=== PATIENT | female | born 1970 | race Caucasian/White ===

== ENCOUNTER → 2016-07-16 | Outpatient (REF) | payer OTHER | LOC: M LAB REF 16:45 | DX: N39.0 Urinary tract infection, site not specified (principal) ==

== ENCOUNTER → 2016-08-01 | Outpatient (REF) | payer OTHER | LOC: M SFHCSACK 10:30 | PROVIDERS: ATTEND Physician Assistant | DX: R87.619 Unspecified abnormal cytological findings in specimens from cervix uteri (principal) ==

== ENCOUNTER → 2016-11-17 | Outpatient (REF) | payer OTHER ==
[~2016-11-17] MED LIST: OXYC1TAB23 PO; SKEL800T97 PO
[2016-11-17 16:22] LABS: BASO % 0.7 % (0.0-1.0); EOS # 0.6 K/mm3 (0.0-0.50); EOS % 7.1 % (0.0-3.0); LARGE UNSTAINED CELL # 0.1 K/mm3 (0.0-0.4); LARGE UNSTAINED CELL % 1.5 % (0.0-4.0); LYMPH # 2.4 K/mm3 (1.5-4.5); LYMPH % 27.7 % (24.0-44.0); MEAN CORPUSCULAR HEMOGLOBIN 22.4 pg (27.0-33.0); MEAN CORPUSCULAR HGB CONC 30.9 g/dl (32.0-36.5); MEAN CORPUSCULAR VOLUME 72.3 fl (80.0-96.0); MONO # 0.5 K/mm3 (0.0-0.8); MONO % 5.6 % (0.0-5.0); NEUTROPHILS # 4.8 K/mm3 (1.8-7.7); NEUTROPHILS % 57.5 % (36.0-66.0); PLATELET COUNT, AUTOMATED 267 k/mm3 (150-450); RED CELL DISTRIBUTION WIDTH 14.6 % (11.5-14.5); WHITE BLOOD COUNT 8.3 K/mm3 (4.0-10.0)
[2016-11-17 16:35] LABS: ALBUMIN 3.7 GM/DL (3.2-5.2); ALBUMIN/GLOBULIN RATIO 1.09 (1.00-1.93); ALKALINE PHOSPHATASE 65 U/L (45-117); ALT/SGPT 27 U/L (12-78); ANION GAP 7 MEQ/L (8-16); AST/SGOT 29 U/L (15-37); BILIRUBIN,TOTAL 0.4 MG/DL (0.2-1.0); BLOOD UREA NITROGEN 19 MG/DL (7-18); CALCIUM LEVEL 9.2 MG/DL (8.5-10.1); CARBON DIOXIDE LEVEL 28 MEQ/L (21-32); CHLORIDE LEVEL 107 MEQ/L (98-107); CHOLESTEROL LEVEL 249 MG/DL (<200); CREATININE FOR GFR 0.84 MG/DL (0.55-1.02); FREE T4 0.83 NG/DL (0.76-1.46); GLOMERULAR FILTRATION RATE > 60.0 (>58); GLUCOSE, FASTING 72 MG/DL (70-105); POTASSIUM SERUM 4.2 MEQ/L (3.5-5.1); SODIUM LEVEL 142 MEQ/L (136-145); TOTAL PROTEIN 7.1 GM/DL (6.4-8.2); TRIGLYCERIDES LEVEL 77 MG/DL (<150); VITAMIN B12 LEVEL 422 PG/ML (247-911)
== END ==
LOC: M SFHCSACK 08:36
PROVIDERS: ATTEND Physician Assistant
DX: Z01.419 Encounter for gynecological examination (general) (routine) without abnormal findings (principal)

== ENCOUNTER → 2016-11-18 | Outpatient (CLI) | payer OTHER ==
--- NOTE | 2016-12-10 01:04 | ECWPNPC ---
PATIENT NAME: CARLOS LIANG : 1970 GENDER: FEMALE VISIT DATE: 11/18/2016 DISCHARGE DATE: 11/18/16 1419 VISIT LOCKED DATE TIME: PHYSICIAN: EFRAIN LOPEZ RESOURCE: EFRAIN LOPEZ REASON FOR APPOINTMENT 1. NECK- HISTORY OF PRESENT ILLNESS NEW PATIENT CONSULT: 46 Y/O FEMALE [facility] ,VALERIE ABARCA PA-C FOR CHRONIC NECK PAIN AND HEADACHES.THIS BEGAN 3 YEARS AGO WITH HEADACHE WITH ASSOCIATED VOMITING.BEGAN FOLLOWING WITH NEUROLOGY HERE LOCALLY WITH DR. HENLEY.BEGAN TO HAVE LEFT ARM RADICULAR SYMPTOMS AFTER A PERIOD OF VOMITING ASSOCIATED WITH [facility].HISTORY OF CERVICAL FUSION IN [place]January 2016 [place].ALSO HAS CHRONIC LOW BACK PAIN.RATING PAIN VAS 3/10.DESCRIBES LEFT NECK AND SHOULDER PAIN INTERMITTENT SHARP AND STABBING PAIN.PAIN IS AGGREVATED BY INCREASED ACTIVITY AND STRESS AND RELIEVED SOMEWHAT WITH MEDICATION.CURRENTLY USING PERCOCET 5/325 PRN FOR SEVERE PAIN.DENIES RECENT FEVER,ILLNESS OR WEIGHT LOSS.DENIES BOWEL OR BLADDER INCONTINENCE. WHEN DID YOUR PAIN FIRST START? . BRIEFLY DESCRIBE HOW YOUR PAIN STARTED? . HOW DOES YOUR PAIN CHANGE WITH TIME? . DOES YOUR PAIN AWAKEN YOU FROM SLEEP? . HOW MANY HOURS OF SLEEP DO YOU NORMALLY GET? . ANY DIAGNOSTIC TESTING? . FACILITY WHERE TESTS WERE DONE? ____. PAIN TREATMENT TREATMENT YES CANCER HAVE YOU EVER HAD ANY TYPE OF CANCER?NO NO. PAIN SCREENING: PATIENT HAS A COMPLAINT OF ACUTE OR CHRONIC PAIN :YES FALL RISK SCREENING: SCREENING :NO FALLS IN THE PAST YEAR BAH INVENTORY: QUESTIONNAIRE ASSESSEDYES SCORE VALUE CALCULATED YES SCORE:14 CURRENT MEDICATIONS TAKING PROBIOTIC CAPSULE 1 TAB ORALLY DAILY TAKING ASPIR-81 81 MG TABLET DELAYED RELEASE 2 TABLET ORALLY ONCE A DAY TAKING MULTIVITAMINS TABLET 1 TABLET ORALLY ONCE A DAY TAKING FLUOXETINE HCL 40 MG CAPSULE 2 CAPSULES ORALLY ONCE A DAY TAKING OXYCODONE-ACETAMINOPHEN 5-325 MG TABLET 1 TABLET NEEDED ORALLY EVERY 6 HRS TAKING LORAZEPAM 1 MG TABLET 1 TABLET BID NEEDED FOR ANXIETY ORALLY 30 DAYS TAKING COQ-10 100 MG CAPSULE 1 CAPSULE WITH A MEAL ORALLY ONCE A DAY NOT-TAKING CO Q 10 100 MG CAPSULE 1 CAPSULE WITH A MEAL ORALLY ONCE A DAY NOT-TAKING ACETAMINOPHEN EXTRA STRENGTH 500 MG TABLET 2 TABLETS NEEDED ORALLY MDD 3 GRAMS EVERY 8 HOURS NEEDED FOR PAIN NOT-TAKING LYRICA 50 MG CAPSULE 1 CAPSULE ORALLY THREE TIMES A DAY MDD 150 MG NOT-TAKING PHYSICAL THERAPY EVALUATE AND TREAT PHYSICAL THERAPY MECHANICAL EVAL & TX M54.2 - CERVICALGIS, S/P SURGERY 3 X/WK X MEDICATION LIST REVIEWED AND RECONCILED WITH THE PATIENT PAST MEDICAL HISTORY HYPERLIPIDEMIA-LOW RISK NUCLEAR STRESS TEST AT AGE 40Y PER PATIENT-[place], [place] BETA-THALASSEMIA MINOR-12/2015 HGB ELECTROPHORESIS C A2 ELEVATED AT 5.2 NICOTINE ADDICTION-3/4 PPD SINCE 19Y-01/01/2016 LOW RISK NST-FIELDS AYMPTOMATIC PYRURIA HX OF CHEST PAIN ARTHRITIS HX OF BACK AND NECK PAIN ALLERGIES PENICILLIN (FOR ALLERGIES USE ONLY): HIVES: ALLERGY SURGICAL HISTORY PREMATURE URETHRA REPAIR 1978 RIGHT SHOULDER REPAIR 1998 BROKEN JAW REPAIR 1998 BREAST IMPLANTS 2009 EYE SURGERY TO REMVE BAGS FROM UNDERNEATH 2010 ECT 2013 BILATERAL BUNIONECTOMY 1994 NECK FUSION SURGERY 01/2016 FAMILY HISTORY FATHER: , CAD, [employer] [place] EARLY 50S, SUICIDE MOTHER: ALIVE, BREAST CANCER, DIAGNOSED WITH DIABETES, HYPERTENSION, CANCER SIBLINGS: ALIVE, JOINT ISSUES, , DIAGNOSED WITH HEART DISEASE DAUGHTER(S): ALIVE, GAVE UP TO ADOPTION 4 BROTHER(S) , 1 SISTER(S) - HEALTHY. 1DAUGHTER(S) - HEALTHY. BROTHER CAD WITH [employer] [place] AT 45Y. SOCIAL HISTORY GENERAL: TOBACCO USE ARE YOU A:CURRENT SMOKER HOW MANY CIGARETTES A DAY DO YOU SMOKE?6-10 PATIENT COUNSELED ON THE DANGERS OF TOBACCO USE AND URGED TO QUIT:11/18/2016 ARE YOU INTERESTED IN QUITTING?NOT READY TO QUIT COUNSELED THE PATIENT ON SMOKING EFFECTS, EDUCATION [id number]/19/2017 RECREATIONAL DRUG USE DRUG USE?NO UATSDIN [id number] JAINISM LANGUAGE LANGUAGES SPOKEN:CITIZEN OF [place] LEARNING BARRIERS / SPECIAL NEEDS BARRIERS TO LEARNING?NO HEARING IMPAIRED?NO VISION IMPAIRED?YES :CORRECTIVE LENSES COGNITIVELY IMPAIRED?NO READINESS TO LEARN?YES LEARNING PREFERENCES?NO LEARNING CAPABILITIES PRESENT?YES EMOTIONAL BARRIERS?NO SPECIAL DEVICES?NO LIBRARY PAGE NEEDED?NO PAIN CLINIC PFS, CLERGY, PUBLIC HEALTH REFERRALS PFS REFERRAL NEEDED?NO CLERGY REFERRAL NEEDED?NO PUBLIC HEALTH REFERRAL NEEDED?NO WAS THE PROVIDER NOTIFIED OF ANY PERTINENT INFO?NO HAS THE PATIENT BEEN EDUCATED REGARDING HIS/HER PLAN OF CARE?YES HAS THE PATIENT BEEN EDUCATED REGARDING PAIN, THE RISK FOR PAIN, THE IMPORTANCE OF EFFECTIVE PAIN MANAGEMENT, AND THE PAIN ASSESSMENT PROCESS?YES PATIENT: ____. ADVANCE DIRECTIVES HEALTH CARE PROXY?NO WOULD YOU LIKE MORE INFORMATION?NO DO YOU HAVE A DNR?NO WOULD YOU LIKE MORE INFORMATION?NO LIVING WILL?NO WOULD YOU LIKE MORE INFORMATION?NO POWER OF LAND PLANNER?NO WOULD YOU LIKE MORE INFORMATION?NO REVIEW OF SYSTEMS REVIEWED BY: PROVIDER: EFRAIN JORDAN . CONSTITUTIONAL: ANY CHANGE IN YOUR MEDICAL CONDITION? NO . CHILLS NO . FEVER NO . INFECTION: DO YOU HAVE NEW INFECTIONS? NO . DO YOU HAVE HISTORY OF MRSA? NO . MUSCULOSKELETAL: ANY NEW PATTERNS OF PAIN OR NUMBNESS? NO . SYTEMIC LUPUS NO . GASTROENTEROLOGY: ANY NEW CHANGE IN BOWEL CONTROL? NO . BARRETTS ESOPHAGUS NO . CIRRHOSIS NO . HEPATITIS NO . LIVER FAILURE NO . ACID REFLUX NO . UNEXPLAINED WEIGHT LOSS NO . GENITOURINARY: ANY NEW CHANGE IN BLADDER CONTROL? NO . IS THERE A CHANCE YOU COULD BE ? NO . HEMATOLOGY/LYMPH: DO YOU TAKE ANY BLOOD THINNERS? (FOR EXAMPLE- COUMADIN, PLAVIX, AGGRENOX, PLATEL, PRADAXA, OR XARELTO) NO . WHEN WAS YOUR LAST DOSE? DATE: TIME: . LOW PLATELET COUNT NO . SICKLE CELL DISEASE NO . VON WILLIEBRANDS NO . FACTOR V LEIDEN NO . THALLASEMIA YES . ANEMIA NO . EASY BRUISING NO . NEUROLOGY: HAVE YOU FALLEN IN THE PAST 6 MONTHS? NO . ANY NEW EXTREMITY NUMBNESS OR WEAKNESS? NO . HEAD INJURY NO . DEMENTIA NO . CEREBRAL PALSY NO . MULTIPLE SCLEROSIS NO . DIZZINESS NO . HEADACHE NO . STROKES NO . VERTIGO NO . CARDIOLOGY: DO YOU HAVE A PACEMAKER OR DEFIBRILLATOR? NO . ANGINA NO . HEART ATTACK NO . HEART SURGERY NO . CONGESTIVE HEART FAILURE/FLUID OVERLOAD NO . CHEST PAIN NO . HIGH BLOOD PRESSURE NO . IRREGULAR HEART BEAT NO . RESPIRATORY: HAVE YOU BEEN SICK IN THE PAST WEEK? NO . FEVER NO . FLU LIKE SYMPTOMS? NO . CPAP NO . BYPAP NO . ASTHMA NO . EMPHYSEMA NO . CHRONIC LUNG DISEASES NO . SHORTNESS OF BREATH ON EXERTION YES . DO YOU USE ANY TYPE OF TOBACCO (SMOKE, SMOKELESS, CHEW)? YES . COUGH NO . SNORING NO . INTEGUMENTARY: DO YOU HAVE ANY RASHES OR OPEN SORES? NO . ALLERGIC/IMMUNO: ARE YOU ALLERGIC TO SHELLFISH OR IV DYE? NO . ANY NEW ALLERGIES? NO . PSYCHIATRIC: DO YOU HAVE THOUGHTS OF HURTING YOURSELF OR SOMEONE ELSE? NO . ARE YOU ABUSED, NEGLECTED, OR IN AN UNSAFE ENVIRONMENT? NO . ENDOCRINOLOGY: ARE YOU DIABETIC? NO . THYROID DISORDER NO . OTHER: DO YOU NEED ANY PRESCRIPTIONS? NO . IF YES, PLEASE LIST: ____ . ANY NEW PROBLEMS WITH YOUR MEDICATIONS? NO . WHEN DID YOU LAST EAT? ____ . WHEN DID YOU LAST DRINK? ____ . WHAT DID YOU LAST DRINK? ____ . NAME OF PERSON DRIVING YOU HOME? ____ . DO YOU HAVE ANY OTHER QUESTIONS OR CONCERNS NO . VITAL SIGNS WT 133.2 LBS, HT 64 IN, BMI 22.86 INDEX, BP 121/83 MM HG, HR 81 /MIN, RR 18 /MIN, TEMP 98.0 F, OXYGEN SAT % 98%, NA INITIALS AW 1317, REVIEWED BY: CS. EXAMINATION GENERAL EXAMINATION: GENERAL APPEARANCE:COMFORTABLE . PSYCHAFFECT NORMAL . NECK:TRACHEA MIDLINE. NO CERVICAL OR SUPRACLAVICULAR LYMPHADENOPATHY NOTED . LUNGS:LUNG GARCIA ARE CLEAR TO AUSCULTATION BILATERALLY. GOOD MOVEMENT OF AIR . HEART:S1, S2 IN A REGULAR RATE AND RHYTHM. NO SIGNIFICANT MURMURS, RUBS OR GALLOPS NOTED . ABDOMEN:SOFT, NON-TENDER, NO ORGANOMEGALY, BOWEL SOUNDS ARE NORMAL . DIAGNOSTIC TESTS REVIEWEDCT CERVICAL 11-30-15-REVIEWED CERVICAL WOVP-8-22-26-REVIEWED . CERVICAL SPINE/NECK: RANGE OF MOTION OF NECK:NORMAL IN ALL DIRECTIONS. REFLEXES:DTRS IN THE ARMS ARE 2+ THROUGHOUT AND EQUAL BILATERALLY. MOTOR STRENGTH:NORMAL. TRAPEZIUS TENDERNESS:PRESENT BILATERALLY. MYOFASCIAL TRIGGER POINTS:NOTED OVER TRAPEZIUS BILATERALLY. ASSESSMENTS CERVICALGIA - M54.2 (PRIMARY) TREATMENT CERVICALGIA REFILL OXYCODONE-ACETAMINOPHEN TABLET, 5-325 MG, 1 TABLET NEEDED, ORALLY, EVERY 6 HRS, 10 DAY(S), 40 TABLET, REFILLS 0 START TIZANIDINE HCL TABLET, 2 MG, 1 TABLET NEEDED, ORALLY, Q8H PRN NECK PAIN, 30 DAY(S), 30, REFILLS 0 NOTES: PT 2XWK X 6 WK-MUSCLE STRENGTHENING.BACK REHAB, ISTOP REGISTRY REVIEWED [id number] DEMNOSTRATES COMPLLIANCE. NARCOTIC AGREEMENT REVIEWED AND SIGNED, RISKS AND BENEFITS OF NARCOTIC/OPIOD MEDICATIONS WERE REVIEWED WITH PATIENT - THIS INCLUDES BUT IS NOT LIMITED TO RISK OF DEPENDANCE/DEVELOPMENT OF ADDICTION, MOOD DISTURBANCE AND DEPRESSION, OSTEOPOROSIS, HORMONAL AND LABIDAL CHANGES, RESPIRATORY DEPRESSION AND . PATIENT IS ADVISED NOT TO DRIVE WHILE ON THESE MEDICATIONS. PREVENTIVE MEDICINE PAIN CLINIC TEACHING: MEDICATIONS TIZANIDINE TEACHING DONE. ADDITIONAL INFORMATION GIVEN. QUESTIONS ANSWERED AND PATIENT VERBALIZES UNDERSTANDING.. PROCEDURE CODES FA211 ESTABILISHED PATIENT [facility] CHARGE DISPOSITION & COMMUNICATION FOLLOW UP 4 WEEKS ELECTRONICALLY SIGNED BY JULIAN THOMPSON ON 12/09/2016 AT 05:23 PM EDT DISCLAIMER : THIS IS A VISIT SUMMARY EXTRACTED FROM THE [employer] CHART. IT IS NOT A COPY OF THE [employer] PROGRESS NOTE. SHELDON
== END ==
LOC: M PAIN 13:00
PROVIDERS: ATTEND Nurse Practitioner Family
DX: M54.2 Cervicalgia (principal); R51 Headache; M54.5 Low back pain; G89.29 Other chronic pain; F32.9 Major depressive disorder, single episode, unspecified; F41.9 Anxiety disorder, unspecified; Z79.82 Long term (current) use of aspirin; Z79.891 Long term (current) use of opiate analgesic; Z79.899 Other long term (current) drug therapy; F17.210 Nicotine dependence, cigarettes, uncomplicated; Z88.0 Allergy status to penicillin

== ENCOUNTER 2017-01-12 11:14 | Emergency (ER) | payer OTHER ==
[~2017-01-12] VITALS: Ht 162.6 cm; Wt 62.7 kg
[2017-01-12] MEDS ORDERED: OXYC1TAB23 PO (11:22)
--- NOTE | 2017-01-12 12:35 | REP ---
Clinical: Status post fusion with pain. Technique: AP, lateral, flexion/extension, open-mouth, bilateral oblique views of the cervical spine. Comparison: 07/25/2015. Findings: The patient is noted to be status post fusion and laminectomy from C4-C7. Alignment is maintained. Chronic stable degenerative changes are noted. No acute fracture / compression injury or subluxation is identified. Prevertebral soft tissues are within normal limits. No subcutaneous emphysema. Impression: No obvious acute abnormality. Postsurgical changes noted. Signed by Krishan Gibson MD 01/12/2017 12:27 P
[2017-01-12] MEDS ORDERED: SKEL800T97 PO (12:44)
[2017-01-12 12:50] VITALS: BP 147/82
== END 2017-01-12 12:52 | disposition home or self-care (01) ==
LOC: M ED 11:14
DX: M54.12 Radiculopathy, cervical region (principal); Z98.1 Arthrodesis status; Z88.0 Allergy status to penicillin

== ENCOUNTER → 2017-01-13 | Outpatient (CLI) | payer OTHER ==
--- NOTE | 2017-01-29 01:02 | ECWPNPC ---
PATIENT NAME: CARLOS LIANG : 1970 GENDER: FEMALE VISIT DATE: 01/13/2017 DISCHARGE DATE: 01/13/17 1034 VISIT LOCKED DATE TIME: PHYSICIAN: EFRAIN LOPEZ RESOURCE: EFRAIN LOPEZ REASON FOR APPOINTMENT 1. NECK HISTORY OF PRESENT ILLNESS HISTORY OF PRESENT ILLNESS: HERE FOR F/U OF CHRONIC NECK AND UPPER BACK PAIN.USING PERCOCET 5/325 Q 12HR PRN FOR PAIN.NO IMPROVEMENT IN PAIN WITH TIZANIDINE 2MG.DISCUSSED MEDICATION AND TREATMENT OPTIONS. STARTED PT AT [facility] A FEW WEEKS AGO.DESCRIBES PAIN INTERMITTENT SHARP AND SHOOTING.HAD TO GO TO ER 5 DAYS AGO.STATES PAIN LEVEL WAS 10/10 VAS.PAIN HAS DIMINISHED PAST 24 HR. PAIN THE PATIENT DESCRIBES THE PAIN... THE PATIENT DESCRIBES THE PAIN... FALL RISK SCREENING: SCREENING :NO FALLS IN THE PAST YEAR CURRENT MEDICATIONS TAKING PROBIOTIC CAPSULE 1 TAB ORALLY DAILY TAKING ASPIR-81 81 MG TABLET DELAYED RELEASE 2 TABLET ORALLY ONCE A DAY TAKING MULTIVITAMINS TABLET 1 TABLET ORALLY ONCE A DAY TAKING COQ-10 100 MG CAPSULE 1 CAPSULE WITH A MEAL ORALLY ONCE A DAY TAKING SIMVASTATIN 20 MG TABLET 1 TABLET IN THE EVENING ORALLY ONCE A DAY TAKING DRISDOL 41123 UNIT CAPSULE 1 CAPSULE ORALLY WEEKLY TAKING FLUOXETINE HCL 40 MG CAPSULE 2 CAPSULES ORALLY ONCE A DAY TAKING OXYCODONE-ACETAMINOPHEN 5-325 MG TABLET 1 TABLET NEEDED ORALLY EVERY 6 HRS TAKING TIZANIDINE HCL 2 MG TABLET 1 TABLET NEEDED ORALLY Q8H PRN NECK PAIN TAKING MELATONIN 10 MG CAPSULE 1 TABLET AT BEDTIME NEEDED WITH FOOD ORALLY ONCE A DAY NEEDED TAKING EXCEDRIN MIGRAINE 250-250-65 MG TABLET 2 TABLETS NEEDED ORALLY EVERY 6 HRS TAKING PHYSICAL THERAPY EVALUATE AND TREAT PHYSICAL THERAPY MECHANICAL EVAL & TX M54.2 - CERVICALGIS, S/P SURGERY 3 X/WK X NOT-TAKING CO Q 10 100 MG CAPSULE 1 CAPSULE WITH A MEAL ORALLY ONCE A DAY NOT-TAKING ACETAMINOPHEN EXTRA STRENGTH 500 MG TABLET 2 TABLETS NEEDED ORALLY MDD 3 GRAMS EVERY 8 HOURS NEEDED FOR PAIN NOT-TAKING LYRICA 50 MG CAPSULE 1 CAPSULE ORALLY THREE TIMES A DAY MDD 150 MG MEDICATION LIST REVIEWED AND RECONCILED WITH THE PATIENT PAST MEDICAL HISTORY HYPERLIPIDEMIA-LOW RISK NUCLEAR STRESS TEST AT AGE 40Y PER PATIENT-[place], [place] BETA-THALASSEMIA MINOR-12/2015 HGB ELECTROPHORESIS C A2 ELEVATED AT 5.2 NICOTINE ADDICTION-3/4 PPD SINCE 19Y-01/01/2016 LOW RISK NST-FIELDS AYMPTOMATIC PYRURIA HX OF CHEST PAIN ARTHRITIS HX OF BACK AND NECK PAIN ALLERGIES PENICILLIN (FOR ALLERGIES USE ONLY): HIVES: ALLERGY SOCIAL HISTORY GENERAL: TOBACCO USE ARE YOU A:CURRENT SMOKER HOW MANY CIGARETTES A DAY DO YOU SMOKE?6-10 ARE YOU INTERESTED IN QUITTING?NOT READY TO QUIT PATIENT COUNSELED ON THE DANGERS OF TOBACCO USE AND URGED TO QUIT:11/18/2016 COUNSELED THE PATIENT ON SMOKING EFFECTS, EDUCATION [id number]/19/2017 LUNG CANCER SCREENING SMOKING STATUS:CURRENT SMOKER IS THE PATIENT BETWEEN THE AGE OF 55 AND 77?NO ALCOHOL SCREENING DID YOU HAVE A DRINK CONTAINING ALCOHOL IN THE PAST YEAR?YES HOW OFTEN DID YOU HAVE SIX OR MORE DRINKS ON ONE OCCASION IN THE PAST YEAR?NEVER (0 POINTS) HOW MANY DRINKS DID YOU HAVE ON A TYPICAL DAY WHEN YOU WERE DRINKING IN THE PAST YEAR?1 OR 2 (0 POINTS) HOW OFTEN DID YOU HAVE A DRINK CONTAINING ALCOHOL IN THE PAST YEAR?MONTHLY OR LESS (1 POINT) POINTS1 INTERPRETATIONNEGATIVE RECREATIONAL DRUG USE DRUG USE?NO CAFFEINE CAFFEINE USE?YES HOW OFTEN AND HOW MUCH? 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 DIET: REGULAR. EXERCISE: 4-5 TIMES WEEKLY - CARDIO, WEIGHT LIFTING. MARITAL STATUS: . OTHERS AT HOME: SPOUSE. DRUZE [id number] ZOROASTRIANISM LANGUAGE LANGUAGES SPOKEN:MALAYSIAN EDUCATION LEVEL OF EDUCATION:GRADUATE LEARNING BARRIERS / SPECIAL NEEDS CHANGE FROM LAST VISIT?NO BARRIERS TO LEARNING?NO HEARING IMPAIRED?NO VISION IMPAIRED?YES :CORRECTIVE LENSES COGNITIVELY IMPAIRED?NO READINESS TO LEARN?YES LEARNING PREFERENCES?NO LEARNING CAPABILITIES PRESENT?YES EMOTIONAL BARRIERS?NO SPECIAL DEVICES?NO CORN LAB TECHNICIAN NEEDED?NO PAIN CLINIC PFS, CLERGY, PUBLIC HEALTH REFERRALS PFS REFERRAL NEEDED?NO CLERGY REFERRAL NEEDED?NO PUBLIC HEALTH REFERRAL NEEDED?NO WAS THE PROVIDER NOTIFIED OF ANY PERTINENT INFO?NO HAS THE PATIENT BEEN EDUCATED REGARDING HIS/HER PLAN OF CARE?YES HAS THE PATIENT BEEN EDUCATED REGARDING PAIN, THE RISK FOR PAIN, THE IMPORTANCE OF EFFECTIVE PAIN MANAGEMENT, AND THE PAIN ASSESSMENT PROCESS?YES PATIENT: ____. ADVANCE DIRECTIVES HEALTH CARE PROXY?NO WOULD YOU LIKE MORE INFORMATION?NO POWER OF INSTALLER METAL FLOORING?NO DO YOU HAVE A DNR?NO WOULD YOU LIKE MORE INFORMATION?NO LIVING WILL?NO WOULD YOU LIKE MORE INFORMATION?NO WOULD YOU LIKE MORE INFORMATION?NO NO DOMESTIC VIOLENCE . REVIEW OF SYSTEMS REVIEWED BY: PROVIDER: EFRAIN JORDAN . CONSTITUTIONAL: ANY CHANGE IN YOUR MEDICAL CONDITION? NO . CHILLS NO . FEVER NO . INFECTION: DO YOU HAVE NEW INFECTIONS? NO . DO YOU HAVE HISTORY OF MRSA? NO . MUSCULOSKELETAL: ANY NEW PATTERNS OF PAIN OR NUMBNESS? NO . GASTROENTEROLOGY: ANY NEW CHANGE IN BOWEL CONTROL? NO . GENITOURINARY: ANY NEW CHANGE IN BLADDER CONTROL? NO . IS THERE A CHANCE YOU COULD BE ? NO . HEMATOLOGY/LYMPH: DO YOU TAKE ANY BLOOD THINNERS? (FOR EXAMPLE- COUMADIN, PLAVIX, AGGRENOX, PLATEL, PRADAXA, OR XARELTO) NO . WHEN WAS YOUR LAST DOSE? DATE: TIME: . NEUROLOGY: HAVE YOU FALLEN IN THE PAST 6 MONTHS? NO . ANY NEW EXTREMITY NUMBNESS OR WEAKNESS? NO . CARDIOLOGY: DO YOU HAVE A PACEMAKER OR DEFIBRILLATOR? NO . RESPIRATORY: HAVE YOU BEEN SICK IN THE PAST WEEK? NO . FEVER NO . FLU LIKE SYMPTOMS? NO . COUGH NO . INTEGUMENTARY: DO YOU HAVE ANY RASHES OR OPEN SORES? NO . ALLERGIC/IMMUNO: ARE YOU ALLERGIC TO SHELLFISH OR IV DYE? NO . ANY NEW ALLERGIES? NO . PSYCHIATRIC: DO YOU HAVE THOUGHTS OF HURTING YOURSELF OR SOMEONE ELSE? NO . ARE YOU ABUSED, NEGLECTED, OR IN AN UNSAFE ENVIRONMENT? NO . ENDOCRINOLOGY: ARE YOU DIABETIC? NO . OTHER: DO YOU NEED ANY PRESCRIPTIONS? YES . IF YES, PLEASE LIST: PERCOCET . ANY NEW PROBLEMS WITH YOUR MEDICATIONS? NO . WHEN DID YOU LAST EAT? ____ . WHEN DID YOU LAST DRINK? ____ . WHAT DID YOU LAST DRINK? ____ . NAME OF PERSON DRIVING YOU HOME? ____ . DO YOU HAVE ANY OTHER QUESTIONS OR CONCERNS YES, EMERGENCY ROOM VISIT 01/12/17 BECAUSE OF A HEADACHE FOR 5 DAYS . VITAL SIGNS WT 130 LBS, HT 64 IN, BMI 22.31 INDEX, BP 132/80 MM HG, HR 83 /MIN, RR 18 /MIN, TEMP 98.0 F, OXYGEN SAT % 96%, SAFE IN ENV? (Y/N) YES, NA INITIALS IN 09:22, REVIEWED BY: VIRGILIO. EXAMINATION GENERAL EXAMINATION: GENERAL APPEARANCE:COMFORTABLE . PSYCHAFFECT NORMAL . NECK:TRACHEA MIDLINE. NO CERVICAL OR SUPRACLAVICULAR LYMPHADENOPATHY NOTED . LUNGS:LUNG GARCIA ARE CLEAR TO AUSCULTATION BILATERALLY. GOOD MOVEMENT OF AIR . HEART:S1, S2 IN A REGULAR RATE AND RHYTHM. NO SIGNIFICANT MURMURS, RUBS OR GALLOPS NOTED . ABDOMEN:SOFT, NON-TENDER, NO ORGANOMEGALY, BOWEL SOUNDS ARE NORMAL . DIAGNOSTIC TESTS REVIEWEDCT CERVICAL 11-30-15-REVIEWED CERVICAL VRSH-0-80-26-REVIEWED . CERVICAL SPINE/NECK: RANGE OF MOTION OF NECK:NORMAL IN ALL DIRECTIONS. REFLEXES:DTRS IN THE ARMS ARE 2+ THROUGHOUT AND EQUAL BILATERALLY. MOTOR STRENGTH:NORMAL. TRAPEZIUS TENDERNESS:PRESENT BILATERALLY. MYOFASCIAL TRIGGER POINTS:NOTED OVER TRAPEZIUS BILATERALLY. ASSESSMENTS CERVICALGIA - M54.2 (PRIMARY) MYOFASCIAL PAIN - M79.1 TREATMENT CERVICALGIA REFILL OXYCODONE-ACETAMINOPHEN TABLET, 5-325 MG, 1 TABLET NEEDED, ORALLY, EVERY 6 HRS, 10 DAY(S), 40 TABLET, REFILLS 0 STOP TIZANIDINE HCL TABLET, 2 MG, 1 TABLET NEEDED, ORALLY, Q8H PRN NECK PAIN START COLACE CAPSULE, 100 MG, 1 CAPSULE NEEDED, ORALLY, BID, 30 DAY(S), 60 CAPSULE, REFILLS 2 NOTES: ISTOP REGISTRY REVIEWED [id number] DEMNOSTRATES COMPLLIANCE. BRINGS IN MEDICATIONS WHICH IS APPROPRIATE FOR WHAT WAS DISPENSED. PREVENTIVE MEDICINE PAIN CLINIC TEACHING: MEDICATIONS COLACE TEACHING DONE. PATIENT VERBALIZES UNDERSTANDING.. PROCEDURE CODES FA211 ESTABILISHED PATIENT [facility] CHARGE DISPOSITION & COMMUNICATION FOLLOW UP 4 WEEKS ELECTRONICALLY SIGNED BY JULIAN THOMPSON ON 01/26/2017 AT 08:17 PM EST DISCLAIMER : THIS IS A VISIT SUMMARY EXTRACTED FROM THE [email or web address] CHART. IT IS NOT A COPY OF THE [email or web address] PROGRESS NOTE. SHELDON
== END | disposition home or self-care (01) ==
LOC: M PAIN 09:00
PROVIDERS: ATTEND Nurse Practitioner Family
DX: G89.29 Other chronic pain (principal); M54.2 Cervicalgia; M79.1 Myalgia; E78.5 Hyperlipidemia, unspecified; D56.1 Beta thalassemia; M19.90 Unspecified osteoarthritis, unspecified site; Z79.899 Other long term (current) drug therapy; Z79.82 Long term (current) use of aspirin; Z88.0 Allergy status to penicillin; F17.210 Nicotine dependence, cigarettes, uncomplicated

== ENCOUNTER → 2017-03-03 | Outpatient (CLI) | payer OTHER ==
[~2017-03-03] MED LIST changes: +BUPIVACAINE HCL 0.25% 10 ML VIAL As Ordered; +BUPIVACAINE HCL 0.25% 30 ML VIAL As Ordered; -OXYC1TAB23 PO; -SKEL800T97 PO; +TRIAMCINOLONE ACETONIDE SUSP 40 MG/ML VIAL (J3301) As Ordered; +diazePAM 5 MG TAB As Ordered; +oxyCODONE 5MG TAB As Ordered
== END ==
LOC: M PAIN 11:30
DX: G89.29 Other chronic pain (principal); M54.2 Cervicalgia; M54.6 Pain in thoracic spine; M79.1 Myalgia; E78.5 Hyperlipidemia, unspecified; D56.1 Beta thalassemia; F17.210 Nicotine dependence, cigarettes, uncomplicated; M19.90 Unspecified osteoarthritis, unspecified site; Z88.0 Allergy status to penicillin; Z79.82 Long term (current) use of aspirin; Z79.899 Other long term (current) drug therapy
CPT/HCPCS: J3301

== ENCOUNTER → 2017-03-04 | Outpatient (REF) | payer OTHER ==
[2017-03-04 16:01] LABS: BASO # 0.1 10^3/uL (0.0-0.2); BASO % 0.8 % (0.0-1.0); EOS # 0.3 10^3/uL (0.0-0.50); EOS % 2.6 % (0.0-3.0); HEMATOCRIT 37.8 % (36.0-47.0); IMMATURE GRANULOCYTE % 0.3 % (0-0); LYMPH # 2.6 10^3/uL (1.5-4.5); MEAN CORPUSCULAR HEMOGLOBIN 21.3 pg (27.0-33.0); MEAN CORPUSCULAR HGB CONC 31.7 g/dl (32.0-36.5); MEAN CORPUSCULAR VOLUME 67.1 fl (80.0-96.0); MONO # 0.6 10^3/uL (0.0-0.8); MONO % 5.7 % (0.0-5.0); NEUTROPHILS # 7.1 10^3/uL (1.8-7.7); NEUTROPHILS % 66.6 % (36.0-66.0); PLATELET COUNT, AUTOMATED 353 10^3/uL (150-450); RED BLOOD COUNT 5.63 10^6/uL (4.00-5.40); RED CELL DISTRIBUTION WIDTH 15.6 % (11.5-14.5); WHITE BLOOD COUNT 10.7 10^3/uL (4.0-10.0)
[2017-03-04 16:12] LABS: ALBUMIN 3.7 GM/DL (3.2-5.2); ALBUMIN/GLOBULIN RATIO 1.16 (1.00-1.93); ALKALINE PHOSPHATASE 65 U/L (45-117); ALT/SGPT 40 U/L (12-78); ANION GAP 7 MEQ/L (8-16); AST/SGOT 32 U/L (7-37); BILIRUBIN,TOTAL 0.6 MG/DL (0.2-1.0); BLOOD UREA NITROGEN 13 MG/DL (7-18); CALCIUM LEVEL 8.6 MG/DL (8.5-10.1); CARBON DIOXIDE LEVEL 27 MEQ/L (21-32); CHLORIDE LEVEL 105 MEQ/L (98-107); CHOLESTEROL LEVEL 194 MG/DL (<200); CREATININE FOR GFR 0.87 MG/DL (0.55-1.02); GLOMERULAR FILTRATION RATE > 60.0 (>58); GLUCOSE, FASTING 129 MG/DL (70-105); HDL CHOLESTEROL 101 MG/DL (>40); NON-HDL-C 93 MG/DL; POTASSIUM SERUM 4.1 MEQ/L (3.5-5.1); SODIUM LEVEL 139 MEQ/L (136-145); TOTAL PROTEIN 6.9 GM/DL (6.4-8.2); TRIGLYCERIDES LEVEL 80 MG/DL (<150)
[2017-03-04 21:38] LABS: TOTAL 25(OH) VITAMIN D 41.4 NG/ML (30.0-100.0)
== END ==
LOC: M SFHCSACK 09:26
DX: F41.1 Generalized anxiety disorder (principal); E78.2 Mixed hyperlipidemia; E55.9 Vitamin D deficiency, unspecified

== ENCOUNTER → 2017-03-18 | Outpatient (CLI) | payer OTHER | LOC: M PAIN 15:15 | DX: M54.81 Occipital neuralgia (principal); M54.2 Cervicalgia; E78.5 Hyperlipidemia, unspecified; D56.1 Beta thalassemia; M19.90 Unspecified osteoarthritis, unspecified site; F17.210 Nicotine dependence, cigarettes, uncomplicated; Z88.0 Allergy status to penicillin; Z79.82 Long term (current) use of aspirin; Z79.899 Other long term (current) drug therapy | CPT/HCPCS: G0463 ==

== ENCOUNTER → 2017-04-15 | Outpatient (CLI) | payer OTHER | LOC: M PAIN 08:30 | DX: G89.29 Other chronic pain (principal); M54.81 Occipital neuralgia; E78.5 Hyperlipidemia, unspecified; D56.1 Beta thalassemia; F17.210 Nicotine dependence, cigarettes, uncomplicated; M19.90 Unspecified osteoarthritis, unspecified site; Z79.82 Long term (current) use of aspirin; Z79.899 Other long term (current) drug therapy; Z88.0 Allergy status to penicillin | CPT/HCPCS: J3301 ==

== ENCOUNTER → 2017-05-06 | Outpatient (CLI) | payer OTHER | LOC: M PAIN 09:45 | DX: M54.81 Occipital neuralgia (principal); M54.2 Cervicalgia; E78.5 Hyperlipidemia, unspecified; D56.3 Thalassemia minor; F17.210 Nicotine dependence, cigarettes, uncomplicated; Z79.82 Long term (current) use of aspirin; Z79.891 Long term (current) use of opiate analgesic; Z79.899 Other long term (current) drug therapy; Z88.0 Allergy status to penicillin | CPT/HCPCS: G0463 ==

== ENCOUNTER → 2017-05-12 | Outpatient (REF) | payer OTHER ==
[2017-05-14 14:18] LABS: HPV HYBRID CAPTURE II Negative (Negative)
== END ==
LOC: M SFHCWAGY 09:32
DX: Z12.4 Encounter for screening for malignant neoplasm of cervix (principal)
CPT/HCPCS: G0123

== ENCOUNTER → 2017-05-12 | Outpatient (CLI) | payer OTHER | LOC: M WHC 09:05 | DX: Z12.31 Encounter for screening mammogram for malignant neoplasm of breast (principal); Z80.3 Family history of malignant neoplasm of breast | CPT/HCPCS: 77067 ==

== ENCOUNTER → 2017-05-14 | Outpatient (CLI) | payer OTHER | LOC: M PAIN 14:45 | DX: M54.81 Occipital neuralgia (principal); M54.2 Cervicalgia; E78.5 Hyperlipidemia, unspecified; F32.9 Major depressive disorder, single episode, unspecified; F41.9 Anxiety disorder, unspecified; F17.210 Nicotine dependence, cigarettes, uncomplicated; Z79.82 Long term (current) use of aspirin; Z79.891 Long term (current) use of opiate analgesic; Z79.899 Other long term (current) drug therapy; Z88.0 Allergy status to penicillin | CPT/HCPCS: G0463 ==

== ENCOUNTER → 2017-05-28 | Outpatient (CLI) | payer OTHER | LOC: M PAIN 08:45 | DX: G89.29 Other chronic pain (principal); M54.81 Occipital neuralgia; E78.5 Hyperlipidemia, unspecified; D56.1 Beta thalassemia; F17.200 Nicotine dependence, unspecified, uncomplicated; M19.90 Unspecified osteoarthritis, unspecified site; F41.9 Anxiety disorder, unspecified; F32.9 Major depressive disorder, single episode, unspecified; Z79.82 Long term (current) use of aspirin; Z79.899 Other long term (current) drug therapy; Z88.0 Allergy status to penicillin | CPT/HCPCS: J3301 ==

== ENCOUNTER → 2017-06-11 | Outpatient (CLI) | payer OTHER | LOC: M PAIN 08:45 | DX: G89.29 Other chronic pain (principal); M54.81 Occipital neuralgia; M96.1 Postlaminectomy syndrome, not elsewhere classified; E78.5 Hyperlipidemia, unspecified; K59.03 Drug induced constipation; D56.3 Thalassemia minor; F17.210 Nicotine dependence, cigarettes, uncomplicated; F41.9 Anxiety disorder, unspecified; F32.9 Major depressive disorder, single episode, unspecified; Z79.891 Long term (current) use of opiate analgesic; Z79.82 Long term (current) use of aspirin; T40.2X5A Adverse effect of other opioids, initial encounter; Z98.1 Arthrodesis status; Z88.0 Allergy status to penicillin; Z79.899 Other long term (current) drug therapy | CPT/HCPCS: G0463 ==

== ENCOUNTER → 2017-07-09 | Outpatient (CLI) | payer OTHER | LOC: M PAIN 09:45 | DX: M54.81 Occipital neuralgia (principal); M96.1 Postlaminectomy syndrome, not elsewhere classified; M54.2 Cervicalgia; G89.29 Other chronic pain; E78.5 Hyperlipidemia, unspecified; F17.210 Nicotine dependence, cigarettes, uncomplicated; M19.90 Unspecified osteoarthritis, unspecified site; F41.9 Anxiety disorder, unspecified; F32.9 Major depressive disorder, single episode, unspecified; Z79.891 Long term (current) use of opiate analgesic; Z79.82 Long term (current) use of aspirin; Z79.899 Other long term (current) drug therapy; Z88.0 Allergy status to penicillin | CPT/HCPCS: G0463 ==

== ENCOUNTER → 2017-08-06 | Outpatient (CLI) | payer OTHER | LOC: M PAIN 10:30 | DX: G89.29 Other chronic pain (principal); M54.81 Occipital neuralgia; M96.1 Postlaminectomy syndrome, not elsewhere classified; E78.5 Hyperlipidemia, unspecified; F41.9 Anxiety disorder, unspecified; F32.9 Major depressive disorder, single episode, unspecified; F17.210 Nicotine dependence, cigarettes, uncomplicated; D56.3 Thalassemia minor; Z98.1 Arthrodesis status; Z79.891 Long term (current) use of opiate analgesic; Z79.82 Long term (current) use of aspirin; Z79.899 Other long term (current) drug therapy; Z88.0 Allergy status to penicillin | CPT/HCPCS: G0463 ==

== ENCOUNTER → 2017-10-28 | Outpatient (CLI) | payer OTHER ==
[~2017-10-28] MED LIST changes: -BUPIVACAINE HCL 0.25% 10 ML VIAL As Ordered; +ISOVUE-M 300 61% 15ML VIAL (Q9967) As Ordered; +LIDOCAINE 1% SDV INJ 30 ML VIAL As Ordered; +MIDAZOLAM INJ 2 MG/2 ML VIAL (J2250) As Ordered; -diazePAM 5 MG TAB As Ordered; +fentaNYL 100 MCG/2 ML INJECTION (J3010) As Ordered; -oxyCODONE 5MG TAB As Ordered
== END ==
LOC: M PAIN 10:15
DX: G89.29 Other chronic pain (principal); M47.812 Spondylosis without myelopathy or radiculopathy, cervical region; M47.813 Spondylosis without myelopathy or radiculopathy, cervicothoracic region; E78.2 Mixed hyperlipidemia; D56.1 Beta thalassemia; F41.9 Anxiety disorder, unspecified; F32.9 Major depressive disorder, single episode, unspecified; F17.200 Nicotine dependence, unspecified, uncomplicated; Z79.82 Long term (current) use of aspirin; Z79.899 Other long term (current) drug therapy; Z88.0 Allergy status to penicillin
CPT/HCPCS: J3301

== ENCOUNTER → 2017-11-14 | Outpatient (CLI) | payer OTHER | LOC: M RAD 09:01 | DX: M51.36 Other intervertebral disc degeneration, lumbar region (principal); M51.26 Other intervertebral disc displacement, lumbar region | CPT/HCPCS: 72148 ==

== ENCOUNTER → 2017-11-18 | Outpatient (CLI) | payer OTHER | LOC: M PAIN 11:15 | DX: M79.1 Myalgia (principal); M47.892 Other spondylosis, cervical region; M96.1 Postlaminectomy syndrome, not elsewhere classified; E78.5 Hyperlipidemia, unspecified; F32.9 Major depressive disorder, single episode, unspecified; F41.9 Anxiety disorder, unspecified; F17.210 Nicotine dependence, cigarettes, uncomplicated; Z79.82 Long term (current) use of aspirin; Z79.891 Long term (current) use of opiate analgesic; Z79.899 Other long term (current) drug therapy; Z88.0 Allergy status to penicillin | CPT/HCPCS: G0463 ==

== ENCOUNTER → 2017-12-08 | Outpatient (CLI) | payer OTHER ==
[~2017-12-08] MED LIST changes: +BUPIVACAINE HCL 0.25% 10 ML VIAL As Ordered; -ISOVUE-M 300 61% 15ML VIAL (Q9967) As Ordered; -LIDOCAINE 1% SDV INJ 30 ML VIAL As Ordered; -MIDAZOLAM INJ 2 MG/2 ML VIAL (J2250) As Ordered; +diazePAM 5 MG TAB As Ordered; -fentaNYL 100 MCG/2 ML INJECTION (J3010) As Ordered; +oxyCODONE 5MG TAB As Ordered
== END ==
LOC: M PAIN 12:30
DX: G89.29 Other chronic pain (principal); M79.10 Myalgia, unspecified site; M54.5 Low back pain; E78.5 Hyperlipidemia, unspecified; D56.1 Beta thalassemia; M19.90 Unspecified osteoarthritis, unspecified site; F41.9 Anxiety disorder, unspecified; F32.9 Major depressive disorder, single episode, unspecified; Z79.82 Long term (current) use of aspirin; Z79.899 Other long term (current) drug therapy; Z88.0 Allergy status to penicillin
CPT/HCPCS: J3301

== ENCOUNTER → 2017-12-24 | Outpatient (CLI) | payer OTHER | LOC: M PAIN 09:00 | DX: M79.18 Myalgia, other site (principal); M47.892 Other spondylosis, cervical region; M96.1 Postlaminectomy syndrome, not elsewhere classified; E78.5 Hyperlipidemia, unspecified; D56.1 Beta thalassemia; M19.90 Unspecified osteoarthritis, unspecified site; F31.31 Bipolar disorder, current episode depressed, mild; F41.9 Anxiety disorder, unspecified; Z79.82 Long term (current) use of aspirin; Z79.899 Other long term (current) drug therapy; Z88.0 Allergy status to penicillin | CPT/HCPCS: G0463 ==

== ENCOUNTER 2017-12-31 12:50 | Emergency (ER) | payer OTHER ==
[2017-12-31] MEDS: hydrOXYzine 50 MG TAB PO (14:59)
== END 2017-12-31 15:23 | disposition home or self-care (01) ==
LOC: M ED 12:50
DX: F11.23 Opioid dependence with withdrawal (principal); F41.9 Anxiety disorder, unspecified; F33.9 Major depressive disorder, recurrent, unspecified; E78.00 Pure hypercholesterolemia, unspecified; D56.3 Thalassemia minor; Z79.899 Other long term (current) drug therapy; Z79.82 Long term (current) use of aspirin; Z88.0 Allergy status to penicillin
CPT/HCPCS: 99283

== ENCOUNTER → 2018-03-01 | Outpatient (REF) | payer OTHER ==
[~2018-03-01] MED LIST changes: +ASPI81TA85 PO; -BUPIVACAINE HCL 0.25% 10 ML VIAL As Ordered; -BUPIVACAINE HCL 0.25% 30 ML VIAL As Ordered; +CO Q100C10 PO; +COLA100C5 PO; +FLUO40CA PO; +HYDR50CA2 PO; +LORA-243 PO; +MOVA1TAB2 PO; +MULT1TAB18 PO; +OXYC10TA3 PO; +OXYC1TAB23 PO; +SIMV20TA2 PO; +SKEL800T97 PO; -TRIAMCINOLONE ACETONIDE SUSP 40 MG/ML VIAL (J3301) As Ordered; +VITA50005 PO; -diazePAM 5 MG TAB As Ordered; -oxyCODONE 5MG TAB As Ordered
[2018-03-01 14:05] LABS: BASO # 0.1 10^3/uL (0.0-0.2); BASO % 0.9 % (0.0-1.0); EOS # 0.2 10^3/uL (0.0-0.50); EOS % 1.9 % (0.0-3.0); HEMATOCRIT 35.8 % (36.0-47.0); HEMOGLOBIN 11.2 g/dl (12.0-15.5); LYMPH # 2.6 10^3/uL (1.5-4.5); LYMPH % 32.7 % (24.0-44.0); MEAN CORPUSCULAR HEMOGLOBIN 21.2 pg (27.0-33.0); MEAN CORPUSCULAR HGB CONC 31.3 g/dl (32.0-36.5); MEAN CORPUSCULAR VOLUME 67.8 fl (80.0-96.0); MONO # 0.5 10^3/uL (0.0-0.8); MONO % 6.7 % (0.0-5.0); NEUTROPHILS # 4.6 10^3/uL (1.8-7.7); NEUTROPHILS % 57.5 % (36.0-66.0); PLATELET COUNT, AUTOMATED 325 10^3/uL (150-450); RED BLOOD COUNT 5.28 10^6/uL (4.00-5.40); WHITE BLOOD COUNT 7.9 10^3/uL (4.0-10.0)
[2018-03-01 14:35] LABS: ALBUMIN 3.3 GM/DL (3.2-5.2); ALT/SGPT 35 U/L (12-78); BILIRUBIN,TOTAL 0.3 MG/DL (0.2-1.0); BLOOD UREA NITROGEN 13 MG/DL (7-18); CALCIUM LEVEL 8.6 MG/DL (8.5-10.1); CARBON DIOXIDE LEVEL 27 MEQ/L (21-32); CHLORIDE LEVEL 106 MEQ/L (98-107); CHOLESTEROL LEVEL 221 MG/DL (<200); CHOLESTEROL RISK RATIO 2.376 (<5); CREATININE FOR GFR 0.87 MG/DL (0.55-1.30); FREE T4 0.82 NG/DL (0.76-1.46); GLOMERULAR FILTRATION RATE > 60.0 (>58); GLUCOSE, FASTING 85 MG/DL (70-100); HDL CHOLESTEROL 93 MG/DL (>40); LDL CHOLESTEROL 111 MG/DL (<100); NON-HDL-C 128 MG/DL; POTASSIUM SERUM 4.4 MEQ/L (3.5-5.1); SODIUM LEVEL 138 MEQ/L (136-145); TOTAL PROTEIN 6.7 GM/DL (6.4-8.2); TRIGLYCERIDES LEVEL 87 MG/DL (<150)
== END ==
LOC: M SFHCSACK 10:30
PROVIDERS: ATTEND Physician Assistant
DX: D56.1 Beta thalassemia (principal); E78.2 Mixed hyperlipidemia; F41.9 Anxiety disorder, unspecified; E55.9 Vitamin D deficiency, unspecified

== ENCOUNTER → 2018-04-02 | Outpatient (CLI) | payer OTHER ==
--- NOTE | 2018-04-11 23:39 | ECWPNPC ---
PATIENT NAME: CARLOS LIANG : 1970 GENDER: FEMALE VISIT DATE: 04/02/2018 DISCHARGE DATE: 04/02/18 1008 VISIT LOCKED DATE TIME: PHYSICIAN: EFRAIN LOPEZ RESOURCE: EFRAIN LOPEZ REASON FOR APPOINTMENT 1. NECK/BACK HISTORY OF PRESENT ILLNESS HISTORY OF PRESENT ILLNESS: HERE FOR F/U OF CHRONIC NECK AND LOW BACK PAIN.STATES NECK PAIN HAS BEEN DRAMATICALLY IMPROVED WITH USE OF MEDICAL MARIJUANA.NO LONGER NEEDS PAIN PILLS.HAS HAD SOME PAIN AND PERSISTENT PAINFUL NODULES RIGHT LOW BACK THAT APPEARD A FEW WEEKS POST TPI.NO REDDNESS.INCREASE IN PAIN WITH PALPATION OVER THIS AREA.RATING PAIN VAS 2/10. PAIN THE PATIENT DESCRIBES THE PAIN... FALL RISK SCREENING: SCREENING :NO FALLS IN THE PAST YEAR CURRENT MEDICATIONS TAKING FLUOXETINE HCL 40 MG CAPSULE 2 CAPSULES ONCE A DAY ORALLY 90 DAYS TAKING SIMVASTATIN 20 MG TABLET 1 TABLET IN THE EVENING ORALLY ONCE A DAY TAKING ASPIR-81 81 MG TABLET DELAYED RELEASE 2 TABLET ORALLY ONCE A DAY TAKING MULTIVITAMINS TABLET 1 TABLET ORALLY ONCE A DAY TAKING COQ-10 100 MG CAPSULE 1 CAPSULE WITH A MEAL ORALLY ONCE A DAY TAKING MELATONIN 10 MG TABLET 2 AT BEDTIME NEEDED WITH FOOD ORALLY ONCE A DAY NEEDED TAKING COLACE 100 MG CAPSULE 2 ORALLY BID TAKING DRISDOL 85951 UNIT CAPSULE 1 CAPSULE ORALLY WEEKLY TAKING IBUPROFEN 600 MG TABLET 1 TABLET WITH FOOD OR MILK NEEDED ORALLY THREE TIMES A DAY TAKING MAY USE MEDICAL MARIJUANNA INHALE PRN DISCONTINUED EXCEDRIN MIGRAINE 250-250-65 MG TABLET 2 TABLETS NEEDED ORALLY EVERY 6 HRS DISCONTINUED DULCOLAX 10 MG SUPPOSITORY 1 SUPPOSITORY NEEDED RECTAL ONCE A DAY MEDICATION LIST REVIEWED AND RECONCILED WITH THE PATIENT PAST MEDICAL HISTORY HYPERLIPIDEMIA-LOW RISK NUCLEAR STRESS TEST AT AGE 40Y PER PATIENT-[place], [place] BETA-THALASSEMIA MINOR-12/2015 HGB ELECTROPHORESIS C A2 ELEVATED AT 5.2 TOBACCO ABUSE AYMPTOMATIC PYRURIA HX OF CHEST PAIN ARTHRITIS CHRONIC BACK AND NECK PAIN ANXIETY AND DEPRESSION TOENAIL FUNGUS SINUSITIS AND LEFT EAR INFECTION ALLERGIES PENICILLIN (FOR ALLERGIES USE ONLY): HIVES: ALLERGY SURGICAL HISTORY PREMATURE URETHRA REPAIR 1978 RIGHT SHOULDER REPAIR 1998 BROKEN JAW REPAIR 1998 BREAST IMPLANTS 2009 EYE SURGERY TO REMVE BAGS FROM UNDERNEATH 2010 ECT 2013 BILATERAL BUNIONECTOMY 1994 NECK FUSION SURGERY 01/2016 FAMILY HISTORY FATHER: , CAD, FIRST [place] EARLY 50S, SUICIDE MOTHER: ALIVE, BREAST CANCER AT AGE EARLY 60'S, BOTH BREASTS AFFECTED, BEGINNING DEMENTIA, DIAGNOSED WITH DIABETES, HYPERTENSION, CANCER SIBLINGS: ALIVE, JOINT ISSUES,, DIAGNOSED WITH HEART DISEASE DAUGHTER(S): ALIVE, GAVE UP TO ADOPTION MATERNAL AUNT: , ONE MATERNAL AUNT WITH OVARIAN CANCER AT AGE 50, ONE MATERNAL AUNT WITH BREAST CANCER DX AT AGE 40 4 BROTHER(S) , 1 SISTER(S) - HEALTHY. 1DAUGHTER(S) - HEALTHY. BROTHER CAD WITH FIRST [place] AT 45Y. SOCIAL HISTORY GENERAL: TOBACCO USE ARE YOU A:CURRENT SMOKER ARE YOU INTERESTED IN QUITTING?THINKING ABOUT QUITTING NOT USING THE GUM AT THIS TIME DUE TO STRESS IN HER LIFE. SHE DID TRY IT AND IT DID DECREASE HER DESIRE FOR A CIGARETTE BUT AT THIS TIME SHE IS TOO STRESSED TO STROP 6/7 HAS PATCHES-STARTED NICODERM 21 YEST. PREVIOUS QUIT ATTEMPTS?YES, WITHIN THE LAST 6 MONTHS. COUNSELED THE PATIENT ON SMOKING CESSATION, EDUCATION [id number]/01/2019 HOW MANY CIGARETTES A DAY DO YOU SMOKE?6-10 HOW SOON AFTER YOU WAKE UP DO YOU SMOKE YOUR FIRST CIGARETTE?WITHIN 5 MIN HOW OFTEN DO YOU SMOKE CIGARETTES?EVERY DAY PATIENT COUNSELED ON THE DANGERS OF TOBACCO USE AND URGED TO QUIT:04/02/2018 LUNG CANCER SCREENING SMOKING STATUS:CURRENT SMOKER IS THE PATIENT BETWEEN THE AGE OF 55 AND 77?NO ALCOHOL SCREENING DID YOU HAVE A DRINK CONTAINING ALCOHOL IN THE PAST YEAR?YES HOW OFTEN DID YOU HAVE SIX OR MORE DRINKS ON ONE OCCASION IN THE PAST YEAR?NEVER (0 POINTS) HOW MANY DRINKS DID YOU HAVE ON A TYPICAL DAY WHEN YOU WERE DRINKING IN THE PAST YEAR?1 OR 2 (0 POINTS) HOW OFTEN DID YOU HAVE A DRINK CONTAINING ALCOHOL IN THE PAST YEAR?MONTHLY OR LESS (1 POINT) POINTS1 INTERPRETATIONNEGATIVE RECREATIONAL DRUG USE DRUG USE?YES MEDICAL MARIJUANA CAFFEINE CAFFEINE USE?YES HOW OFTEN AND HOW MUCH? 4 CUPS DAILY SEXUAL HX HAD SEX IN THE LAST 12 MONTHS (VAGINAL, ORAL, OR ANAL)?YES WITHMEN ONLY USE PROTECTION?NO LMP:05/08/17 HAVE YOU EVER HAD AN STD?YES HERPES?YES SYPHILIS?NO GC?NO CHLAMYDIA?NO HIV / HEP-C SCREENING HIV TEST OFFERED TO PATIENT:YES DATE OFFERED:12/01/2016 TEST ACCEPTED:NO REASON:PATIENT DECLINED RELIGIOUS [id number] ORTHODOXY LANGUAGE LANGUAGES SPOKEN:SLOVENIAN EDUCATION LEVEL OF EDUCATION:GRADUATE LEARNING BARRIERS / SPECIAL NEEDS CHANGE FROM LAST VISIT?NO BARRIERS TO LEARNING?NO HEARING IMPAIRED?NO VISION IMPAIRED?YES COGNITIVELY IMPAIRED?NO :CORRECTIVE LENSES READINESS TO LEARN?YES LEARNING PREFERENCES?NO LEARNING CAPABILITIES PRESENT?YES EMOTIONAL BARRIERS?NO SPECIAL DEVICES?NO WEBSITE OPTIMIZATION STRATEGIST NEEDED?NO NO DOMESTIC VIOLENCE DO YOU FEEL SAFE IN YOUR ENVIRONMENT?YES OCCUPATION: RN ACCESS/FREE TONY WRITING. DIET: REGULAR. EXERCISE: 4-5 TIMES WEEKLY - CARDIO, WEIGHT LIFTING. MARITAL STATUS: . OTHERS AT HOME: SPOUSE. PAIN CLINIC PFS, CLERGY, PUBLIC HEALTH REFERRALS PFS REFERRAL NEEDED?NO CLERGY REFERRAL NEEDED?NO PUBLIC HEALTH REFERRAL NEEDED?NO WAS THE PROVIDER NOTIFIED OF ANY PERTINENT INFO?NO N/A HAS THE PATIENT BEEN EDUCATED REGARDING HIS/HER PLAN OF CARE?YES HAS THE PATIENT BEEN EDUCATED REGARDING PAIN, THE RISK FOR PAIN, THE IMPORTANCE OF EFFECTIVE PAIN MANAGEMENT, AND THE PAIN ASSESSMENT PROCESS?YES ADVANCE DIRECTIVE ADVANCE DIRECTIVE DISCUSSED WITH PATIENT:YES DECLINED INFORMATION ON HCP 08/06/17 1125 REVIEWED WITH PT.10/28/17 1045 REVIEWED WITH PT LAS. HOSPITALIZATION/MAJOR DIAGNOSTIC PROCEDURE SURGERY RELATED REVIEW OF SYSTEMS REVIEWED BY: PROVIDER: EFRAIN JORDAN . CONSTITUTIONAL: ANY CHANGE IN YOUR MEDICAL CONDITION? YES, S/P TPI SCARS TO RIGHT LOW BACK, SEEN AT [facility] ER EARLY 03/2018 WHERE ULTRASOUND WAS DONE, PT WAS INSTRUCTED TO F/U W PCP. PT RECENTLY RETURNED FROM [place] FOR F/U . CHILLS NO . FEVER NO . INFECTION: DO YOU HAVE NEW INFECTIONS? NO . DO YOU HAVE HISTORY OF MRSA? NO . MUSCULOSKELETAL: ANY NEW PATTERNS OF PAIN OR NUMBNESS? YES, RIGHT LOW BACK PAIN S/P TPI . GASTROENTEROLOGY: ANY NEW CHANGE IN BOWEL CONTROL? NO . GENITOURINARY: ANY NEW CHANGE IN BLADDER CONTROL? NO . IS THERE A CHANCE YOU COULD BE ? NO . HEMATOLOGY/LYMPH: DO YOU TAKE ANY BLOOD THINNERS? (FOR EXAMPLE- COUMADIN, PLAVIX, AGGRENOX, PLATEL, PRADAXA, OR XARELTO) NO . WHEN WAS YOUR LAST DOSE? DATE: TIME: . NEUROLOGY: HAVE YOU FALLEN IN THE PAST 12 MONTHS? YES, PRIOR TO LAST VISIT . ANY NEW EXTREMITY NUMBNESS OR WEAKNESS? NO . CARDIOLOGY: DO YOU HAVE A PACEMAKER OR DEFIBRILLATOR? NO . RESPIRATORY: HAVE YOU BEEN SICK IN THE PAST WEEK? YES, URI RESOLVING . FEVER NO . FLU LIKE SYMPTOMS? NO . COUGH YES, NON-PRODUCTIVE RESOLVING . INTEGUMENTARY: DO YOU HAVE ANY RASHES OR OPEN SORES? NO . ALLERGIC/IMMUNO: ARE YOU ALLERGIC TO IV DYE? NO . ANY NEW ALLERGIES? NO . PSYCHIATRIC: DO YOU HAVE THOUGHTS OF HURTING YOURSELF OR SOMEONE ELSE? NO . ARE YOU ABUSED, NEGLECTED, OR IN AN UNSAFE ENVIRONMENT? NO . ENDOCRINOLOGY: ARE YOU DIABETIC? NO . OTHER: DO YOU NEED ANY PRESCRIPTIONS? NO . IF YES, PLEASE LIST: ____ . ANY NEW PROBLEMS WITH YOUR MEDICATIONS? NO . WHEN DID YOU LAST EAT? ____ . WHEN DID YOU LAST DRINK? ____ . WHAT DID YOU LAST DRINK? ____ . NAME OF PERSON DRIVING YOU HOME? ____ . DO YOU HAVE ANY OTHER QUESTIONS OR CONCERNS NO . VITAL SIGNS WT 135.4 LBS, HT 64 IN, BMI 23.24 INDEX, BP 142/82 MM HG, HR 75 /MIN, RR 18 /MIN, TEMP 98.4 F, OXYGEN SAT % 100, NA INITIALS AW 0939, REVIEWED BY: EM. EXAMINATION GENERAL EXAMINATION: GENERAL APPEARANCE:ALERT ,WEEPY . PSYCHAFFECT FLAT,CONSTRICTED . LUNGS:LUNG GARCIA ARE CLEAR TO AUSCULTATION BILATERALLY. GOOD MOVEMENT OF AIR . HEART:S1, S2 IN A REGULAR RATE AND RHYTHM. NO SIGNIFICANT MURMURS, RUBS OR GALLOPS NOTED . LUMBAR SACRAL SPINETRIGGER POINT/NODULES RIGHT LUMBAR PARASPINAL .NO REDNESS. ASSESSMENTS MYALGIA, OTHER SITE - M79.18 (PRIMARY) SACROILIITIS - M46.1 TREATMENT MYALGIA, OTHER SITE START LIDOCAINE LOTION, 4 %, DIRECTED, EXTERNALLY, APPLY TO RIGHT LOW BACK TID, 30 DAY(S), 3, REFILLS 1 PROCEDURE CODES FA211 ESTABILISHED PATIENT [facility] FACILITY CHARGE DISPOSITION & COMMUNICATION FOLLOW UP 2-3 MOS ELECTRONICALLY SIGNED BY JULIAN ONEILL ON 04/11/2018 AT 03:46 PM EST DISCLAIMER : THIS IS A VISIT SUMMARY EXTRACTED FROM THE [employer] CHART. IT IS NOT A COPY OF THE [employer] PROGRESS NOTE. MTDD
== END ==
LOC: M PAIN 09:30
PROVIDERS: ATTEND Nurse Practitioner Family
DX: M79.18 Myalgia, other site (principal); M46.1 Sacroiliitis, not elsewhere classified; E78.5 Hyperlipidemia, unspecified; D56.3 Thalassemia minor; F41.9 Anxiety disorder, unspecified; F32.9 Major depressive disorder, single episode, unspecified; M19.90 Unspecified osteoarthritis, unspecified site; F17.210 Nicotine dependence, cigarettes, uncomplicated; Z88.0 Allergy status to penicillin; Z98.1 Arthrodesis status; Z79.82 Long term (current) use of aspirin; Z79.899 Other long term (current) drug therapy

== ENCOUNTER → 2018-06-10 | Outpatient (CLI) | payer OTHER ==
--- NOTE | 2018-06-10 10:47 | REPMRS ---
Patient History The patient states she had a clinical breast exam in 05/2018. Family history of breast cancer under age 50 in mother, breast cancer at age 50 or over in maternal aunt, breast cancer at age 50 or over in maternal aunt, breast cancer at age 50 or over in maternal grandmother. Implants in both breasts, 2009. Digital Woman Screen Mammo: June 10, 2018 - Exam #: [id number] Bilateral CC and MLO view(s) were taken. Technologist: Mary Smith Technologist Prior study comparison: May 12, 2017, digital woman screen mammo performed at [facility] [employer]. May 22, 2015, digital woman screen mammo performed at [facility] [employer]. December 26, 2013, bilateral digital woman screen mammo, performed at [facility]. FINDINGS: The breast tissue is heterogeneously dense. This may lower the sensitivity of mammography. The visualized implant margins are smooth. Breast parenchymal density pattern is essentially symmetric. No dominant mass, clustered microcalcification, or architectural distortion is evident on either side. 3-D tomosynthesis shows no additional findings. No significant changes when compared with prior studies. Assessment: BI-RADS/ACR category 2 mammogram. Benign Findings. Recommendation Breast MRI of both breasts in 6 months. Routine screening mammogram of both breasts in 1 year (for women over age 40). This patient's Lifetime Breast Cancer RIsk is estimated at 33.3 %. Annual screening Breast MRI scanniing is recommended for patient's whose lifetime risk assessment is over 20%. This mammogram was interpreted with the aid of an FDA-approved computer-aided dectection system. Electronically Signed By: Loi Do MD 06/10/18 7618
== END ==
LOC: M WHC 08:17
PROVIDERS: ATTEND Nurse Practitioner Women's Health
DX: Z12.31 Encounter for screening mammogram for malignant neoplasm of breast (principal); Z80.3 Family history of malignant neoplasm of breast; Z98.82 Breast implant status

== ENCOUNTER → 2018-06-10 | Outpatient (CLI) | payer OTHER ==
--- NOTE | 2018-06-28 00:25 | ECWPNPC ---
PATIENT NAME: CARLOS LIANG : 1970 GENDER: FEMALE VISIT DATE: 06/10/2018 DISCHARGE DATE: 06/10/18 1502 VISIT LOCKED DATE TIME: PHYSICIAN: EFRAIN LOPEZ RESOURCE: EFRAIN LOPEZ REASON FOR APPOINTMENT 1. NECK/BACK HISTORY OF PRESENT ILLNESS HISTORY OF PRESENT ILLNESS: HERE FOR F/U OF CHRONIC NECK AND LOW BACK PAIN.CHIEF AREA OF PAIN IS RIGHT LOW BACK.HAS AN AREA OF PAIN AND DISCOLORATION/BRUISING THAT HAS BEEN PERSISTENT SINCE FALLING OFF HOVER BOARD IN JULY 2017.RATING LOW BACK PAIN 4/10 VAS. PAIN THE PATIENT DESCRIBES THE PAIN... FALL RISK SCREENING: SCREENING :NO FALLS REPORTED IN THE LAST YEAR CURRENT MEDICATIONS TAKING FLUOXETINE HCL 40 MG CAPSULE 2 CAPSULES ONCE A DAY ORALLY 90 DAYS TAKING SIMVASTATIN 20 MG TABLET 1 TABLET IN THE EVENING ORALLY ONCE A DAY TAKING ASPIR-81 81 MG TABLET DELAYED RELEASE 2 TABLET ORALLY ONCE A DAY TAKING MULTIVITAMINS TABLET 1 TABLET ORALLY ONCE A DAY TAKING COQ-10 100 MG CAPSULE 1 CAPSULE WITH A MEAL ORALLY ONCE A DAY TAKING MELATONIN 10 MG TABLET 2 AT BEDTIME NEEDED WITH FOOD ORALLY ONCE A DAY NEEDED TAKING COLACE 100 MG CAPSULE 2 ORALLY BID TAKING IBUPROFEN 600 MG TABLET 1 TABLET WITH FOOD OR MILK NEEDED ORALLY THREE TIMES A DAY TAKING MAY USE MEDICAL MARIJUANNA INHALE PRN TAKING LIDOCAINE 4 % LOTION DIRECTED EXTERNALLY APPLY TO RIGHT LOW BACK TID NOT-TAKING DRISDOL 94530 UNIT CAPSULE 1 CAPSULE ORALLY WEEKLY MEDICATION LIST REVIEWED AND RECONCILED WITH THE PATIENT PAST MEDICAL HISTORY HYPERLIPIDEMIA-LOW RISK NUCLEAR STRESS TEST AT AGE 40Y PER PATIENT-[place], [place] BETA-THALASSEMIA MINOR-12/2015 HGB ELECTROPHORESIS C A2 ELEVATED AT 5.2 TOBACCO ABUSE AYMPTOMATIC PYRURIA HX OF CHEST PAIN ARTHRITIS CHRONIC BACK AND NECK PAIN ANXIETY AND DEPRESSION TOENAIL FUNGUS SINUSITIS AND LEFT EAR INFECTION ALLERGIES PENICILLIN (FOR ALLERGIES USE ONLY): HIVES - ALLERGY SURGICAL HISTORY PREMATURE URETHRA REPAIR 1978 RIGHT SHOULDER REPAIR 1998 BROKEN JAW REPAIR 1998 BREAST IMPLANTS 2009 EYE SURGERY TO REMVE BAGS FROM UNDERNEATH 2010 ECT 2013 BILATERAL BUNIONECTOMY 1994 NECK FUSION SURGERY 01/2016 FAMILY HISTORY FATHER: , CAD, FIRST [place] EARLY 50S, SUICIDE MOTHER: ALIVE, BREAST CANCER AT AGE EARLY 60'S, BOTH BREASTS AFFECTED, BEGINNING DEMENTIA, DIAGNOSED WITH CANCER, DIABETES, HYPERTENSION SIBLINGS: ALIVE, JOINT ISSUES,, HEART DISEASE DAUGHTER(S): ALIVE, GAVE UP TO ADOPTION MATERNAL GRAND MOTHER: BREAST CANCER, CANCER MATERNAL AUNT: , ONE MATERNAL AUNT WITH OVARIAN CANCER AT AGE 50, ONE MATERNAL AUNT WITH BREAST CANCER DX AT AGE 40 4 BROTHER(S) , 1 SISTER(S) - HEALTHY. 1DAUGHTER(S) - HEALTHY. BROTHER CAD WITH FIRST [place] AT 45Y. SOCIAL HISTORY GENERAL: TOBACCO USE ARE YOU A:CURRENT SMOKER ARE YOU INTERESTED IN QUITTING?NOT READY TO QUIT COUNSELED THE PATIENT ON SMOKING EFFECTS, EDUCATION [id number]/11/2019 HOW MANY CIGARETTES A DAY DO YOU SMOKE?6-10 HOW SOON AFTER YOU WAKE UP DO YOU SMOKE YOUR FIRST CIGARETTE?WITHIN 5 MIN HOW OFTEN DO YOU SMOKE CIGARETTES?EVERY DAY PATIENT COUNSELED ON THE DANGERS OF TOBACCO USE AND URGED TO QUIT:06/10/2018 LATEX QUESTIONNAIRE LATEX ALLERGY : HAVE YOU EVER DEVELOPED ANY TYPE OF REACTION AFTER HANDLING LATEX PRODUCTS SUCH RUBBER GLOVES, CONDOMS, DIAPHRAGMS, BALLOONS, SOCKS, OR UNDERWEAR?NO LATEX ALLERGY : HAVE YOU EVER DEVELOPED ANY TYPE OF REACTION DURING OR AFTER DENTAL APPOINTMENT, VAGINAL/RECTAL EXAMINATION, SURGICAL PROCEDURE, OR ANY OTHER EXPOSURE?NO LATEX RISK : HAVE YOU EVER HAD ANY DIFFICULTY BREATHING OR HIVES AFTER EATING OR HANDLING ANY FRUITS, OR VEGETABLES; SUCH KIWI, BANANAS, STONE FRUITS, OR CHESTNUTSNO LATEX RISK : DO YOU HAVE A PREVIOUS PERSONAL HISTORY OF MORE THAN NINE SURGERIES, SPINA BIFIDA, OR REPEATED CATHERTIZATIONS? NO LATEX RISK : ARE YOU FREQUENTLY EXPOSED TO LATEX PRODUCTS IN YOUR OCCUPATION?NO DATE ASKED : 06/10/2018 LUNG CANCER SCREENING SMOKING STATUS:CURRENT SMOKER IS THE PATIENT BETWEEN THE AGE OF 55 AND 77?NO ALCOHOL SCREENING DID YOU HAVE A DRINK CONTAINING ALCOHOL IN THE PAST YEAR?YES HOW OFTEN DID YOU HAVE A DRINK CONTAINING ALCOHOL IN THE PAST YEAR?MONTHLY OR LESS (1 POINT) HOW MANY DRINKS DID YOU HAVE ON A TYPICAL DAY WHEN YOU WERE DRINKING IN THE PAST YEAR?1 OR 2 (0 POINTS) HOW OFTEN DID YOU HAVE SIX OR MORE DRINKS ON ONE OCCASION IN THE PAST YEAR?NEVER (0 POINTS) POINTS1 INTERPRETATIONNEGATIVE RECREATIONAL DRUG USE DRUG USE?YES MEDICAL MARIJUANA CAFFEINE CAFFEINE USE?YES HOW OFTEN AND HOW MUCH? 4 CUPS DAILY SEXUAL HX HAD SEX IN THE LAST 12 MONTHS (VAGINAL, ORAL, OR ANAL)?YES WITHMEN ONLY USE PROTECTION?NO HAVE YOU EVER HAD AN STD?YES HERPES?YES LMP:05/31/18 CHLAMYDIA?NO GC?NO SYPHILIS?NO HIV / HEP-C SCREENING HIV TEST OFFERED TO PATIENT:YES DATE OFFERED:06/10/2018 TEST ACCEPTED:NO REASON:PATIENT DECLINED BROCHURE PROVIDED TO PATIENTNO CHURCH [id number] CAODAISM LANGUAGE LANGUAGES SPOKEN:DANISH EDUCATION LEVEL OF EDUCATION:GRADUATE LEARNING BARRIERS / SPECIAL NEEDS CHANGE FROM LAST VISIT?NO BARRIERS TO LEARNING?NO HEARING IMPAIRED?NO VISION IMPAIRED?YES :CORRECTIVE LENSES COGNITIVELY IMPAIRED?NO READINESS TO LEARN?YES LEARNING PREFERENCES?NO LEARNING CAPABILITIES PRESENT?YES EMOTIONAL BARRIERS?NO SPECIAL DEVICES?NO READINESS PARAPROFESSIONAL NEEDED?NO NO DOMESTIC VIOLENCE DO YOU FEEL SAFE IN YOUR ENVIRONMENT?YES OCCUPATION: INTERNAL SALES ENGINEER/FREE TONY WRITING. DIET: REGULAR. EXERCISE: 4-5 TIMES WEEKLY - CARDIO, WEIGHT LIFTING,RUNS. MARITAL STATUS: . OTHERS AT HOME: SPOUSE. PAIN CLINIC PFS, CLERGY, PUBLIC HEALTH REFERRALS PFS REFERRAL NEEDED?NO CLERGY REFERRAL NEEDED?NO PUBLIC HEALTH REFERRAL NEEDED?NO WAS THE PROVIDER NOTIFIED OF ANY PERTINENT INFO?NO N/A HAS THE PATIENT BEEN EDUCATED REGARDING HIS/HER PLAN OF CARE?YES HAS THE PATIENT BEEN EDUCATED REGARDING PAIN, THE RISK FOR PAIN, THE IMPORTANCE OF EFFECTIVE PAIN MANAGEMENT, AND THE PAIN ASSESSMENT PROCESS?YES ADVANCE DIRECTIVE ADVANCE DIRECTIVE DISCUSSED WITH PATIENT:YES 06/10/18 PATIENT GIVEN INFORMATION ON HCP, DECLINED ASSISTANCE FILLING IT OUT. STATED SHE WANTED TO TAKE IT HOME AND LOOK IT OVER. JS 08/06/17 1125 REVIEWED WITH PT.10/28/17 1045 REVIEWED WITH PT LAS REVIEWED WITH PATIENT 06/10/18 1441 JS. HOSPITALIZATION/MAJOR DIAGNOSTIC PROCEDURE SURGERY RELATED REVIEW OF SYSTEMS REVIEWED BY: PROVIDER: EFRAIN JORDAN . CONSTITUTIONAL: ANY CHANGE IN YOUR MEDICAL CONDITION? NO . CHILLS NO . FEVER NO . INFECTION: DO YOU HAVE NEW INFECTIONS? NO . DO YOU HAVE HISTORY OF MRSA? NO . MUSCULOSKELETAL: ANY NEW PATTERNS OF PAIN OR NUMBNESS? NO . GASTROENTEROLOGY: ANY NEW CHANGE IN BOWEL CONTROL? NO . GENITOURINARY: ANY NEW CHANGE IN BLADDER CONTROL? NO . IS THERE A CHANCE YOU COULD BE ? NO . HEMATOLOGY/LYMPH: DO YOU TAKE ANY BLOOD THINNERS? (FOR EXAMPLE- COUMADIN, PLAVIX, AGGRENOX, PLATEL, PRADAXA, OR XARELTO) NO . WHEN WAS YOUR LAST DOSE? DATE: TIME: . NEUROLOGY: HAVE YOU FALLEN IN THE PAST 12 MONTHS? YES, PRIOR TO LAST VISIT, STATES DISCUSSED AT PREVIOUS VISIT . ANY NEW EXTREMITY NUMBNESS OR WEAKNESS? NO . CARDIOLOGY: DO YOU HAVE A PACEMAKER OR DEFIBRILLATOR? NO . RESPIRATORY: HAVE YOU BEEN SICK IN THE PAST WEEK? NO . FEVER NO . FLU LIKE SYMPTOMS? NO . COUGH NO . INTEGUMENTARY: DO YOU HAVE ANY RASHES OR OPEN SORES? NO . ALLERGIC/IMMUNO: ARE YOU ALLERGIC TO IV DYE? NO . ANY NEW ALLERGIES? NO . PSYCHIATRIC: DO YOU HAVE THOUGHTS OF HURTING YOURSELF OR SOMEONE ELSE? NO . ARE YOU ABUSED, NEGLECTED, OR IN AN UNSAFE ENVIRONMENT? NO . ENDOCRINOLOGY: ARE YOU DIABETIC? NO . OTHER: DO YOU NEED ANY PRESCRIPTIONS? NO . IF YES, PLEASE LIST: ____ . ANY NEW PROBLEMS WITH YOUR MEDICATIONS? NO . WHEN DID YOU LAST EAT? ____ . WHEN DID YOU LAST DRINK? ____ . WHAT DID YOU LAST DRINK? ____ . NAME OF PERSON DRIVING YOU HOME? ____ . DO YOU HAVE ANY OTHER QUESTIONS OR CONCERNS NO . VITAL SIGNS WT 135 LBS, HT 64 IN, BMI 23.17 INDEX, BP 120/70 MM HG, HR 77 /MIN, RR 18 /MIN, TEMP 100.0 F, OXYGEN SAT % 98%, SAFE IN ENV? (Y/N) YES, NA INITIALS LA 14:34, REVIEWED BY: OSMANI. EXAMINATION GENERAL EXAMINATION: GENERAL APPEARANCE:ALERT ,WEEPY . PSYCHAFFECT FLAT,CONSTRICTED . LUNGS:LUNG GACRIA ARE CLEAR TO AUSCULTATION BILATERALLY. GOOD MOVEMENT OF AIR . HEART:S1, S2 IN A REGULAR RATE AND RHYTHM. NO SIGNIFICANT MURMURS, RUBS OR GALLOPS NOTED . LUMBAR SACRAL SPINETRIGGER POINT/NODULES RIGHT LUMBAR PARASPINAL .NO REDNESS. ASSESSMENTS MYALGIA, OTHER SITE - M79.18 (PRIMARY) SACROILIITIS - M46.1 TREATMENT MYALGIA, OTHER SITE [facility] MRI SPINE, L.S. WITHOUT [id number],HEATHER L 06/15/2018 1:21:48 PM > RADHA MATHEW 06/14/2018 2:57:29 PM > NO PA NEEDED, REF [id number] OKAY TO BOOK PROCEDURE CODES FA211 ESTABILISHED PATIENT [facility] CHARGE DISPOSITION & COMMUNICATION FOLLOW UP 6 WEEKS ELECTRONICALLY SIGNED BY JULIAN ONEILL ON 06/27/2018 AT 11:40 AM EDT DISCLAIMER : THIS IS A VISIT SUMMARY EXTRACTED FROM THE [employer] CHART. IT IS NOT A COPY OF THE [employer] PROGRESS NOTE. SHELDON
== END ==
LOC: M PAIN 14:00
PROVIDERS: ATTEND Nurse Practitioner Family
DX: M79.18 Myalgia, other site (principal); M46.1 Sacroiliitis, not elsewhere classified; E78.5 Hyperlipidemia, unspecified; D56.1 Beta thalassemia; M19.90 Unspecified osteoarthritis, unspecified site; F17.210 Nicotine dependence, cigarettes, uncomplicated; Z79.82 Long term (current) use of aspirin; Z79.899 Other long term (current) drug therapy; Z88.0 Allergy status to penicillin; Z86.59 Personal history of other mental and behavioral disorders

== ENCOUNTER → 2018-06-23 | Outpatient (CLI) | payer OTHER ==
--- NOTE | 2018-06-23 08:31 | REP ---
MR lumbar spine without contrast History: Back pain Comparison: 11/14/2017 Decreased signal intensity on T2-weighted images is present in the L2-3, L3-4 and L5 S1 intervertebral discs. The L2-3 and L3-4 intervertebral discs are decreased in height. These findings are consistent with disc degeneration. There is no disc bulge or herniation at the L1-2 level. The L1 nerves exit the neural foramina without compression. A diffuse disc bulge is present at the L2-3 level. There is minimal compression of the thecal sac. The L2 nerves exit the neural foramina without compression. A diffuse disc bulge is present at the L3-4 level. There is minimal compression of the thecal sac. The L3 nerves exit the neural foramina without compression. A diffuse disc bulge is present at the L4-5 level. There is minimal compression of the thecal sac. The L4 nerves exit the neural foramina without compression. A diffuse disc bulge is present at the L5-L1 level. There is minimal compression of the thecal sac. The L5 nerves exit the neural foramina without compression. The conus medullaris is normal in appearance terminating at the level of the L1-2 intervertebral disc. Normal signal intensity is present in the lumbar vertebral bodies. Impression: Diffuse disc bulges at the L2-3 through L5-L1 levels with minimal thecal sac compression. Electronically Signed by Emmett Aguilar MD 06/23/2018 08:23 A
== END ==
LOC: M RAD 07:21
PROVIDERS: ATTEND Nurse Practitioner Family
DX: M51.26 Other intervertebral disc displacement, lumbar region (principal); M51.27 Other intervertebral disc displacement, lumbosacral region

== ENCOUNTER 2018-07-02 10:40 | Emergency (ER) | payer OTHER ==
[~2018-07-02] VITALS: Ht 162.6 cm; Wt 60.0 kg
[2018-07-02 10:41] VITALS: BP 112/66
[2018-07-02] MEDS ORDERED: DERMABOND TOPICAL SKIN ADHESIVE TOP ONE (11:15)
[2018-07-02] MEDS ORDERED: ADACEL/BOOSTRIX VACCINE (DIPHTH/PERTUSS/ACELL/TETANUS)0.5ML SYR (90715) IM ONE (11:15)
== END 2018-07-02 11:39 | disposition home or self-care (01) ==
LOC: M ED 10:40
DX: S61.011A Laceration without foreign body of right thumb without damage to nail, initial encounter (principal); W26.8XXA Contact with other sharp object(s), not elsewhere classified, initial encounter; Y92.098 Other place in other non-institutional residence as the place of occurrence of the external cause; Z88.0 Allergy status to penicillin; E78.00 Pure hypercholesterolemia, unspecified; M54.2 Cervicalgia; D56.3 Thalassemia minor; F32.9 Major depressive disorder, single episode, unspecified; F41.9 Anxiety disorder, unspecified; Z79.899 Other long term (current) drug therapy; Z79.82 Long term (current) use of aspirin

== ENCOUNTER → 2018-07-29 | Outpatient (CLI) | payer OTHER ==
--- NOTE | 2018-08-10 02:50 | ECWPNPC ---
PATIENT NAME: CARLOS LIANG : 1970 GENDER: FEMALE VISIT DATE: 07/29/2018 DISCHARGE DATE: 07/29/18 1033 VISIT LOCKED DATE TIME: PHYSICIAN: EFRAIN LOPEZ RESOURCE: EFRAIN LOPEZ REASON FOR APPOINTMENT 1. REVIEW MRI HISTORY OF PRESENT ILLNESS HISTORY OF PRESENT ILLNESS: HERE FOR F/U AND MANAGEMENT OF CHRONIC NECK AND LBP.OVERALL DOING WELL.USING MEDICAL MARIJUANA,IBUPROFEN AND ASPERCREAM.RATING PAIN VAS 2/10.REVIEWED MRI L/S SPINE WHICH IS WNL. PAIN THE PATIENT DESCRIBES THE PAIN... FALL RISK SCREENING: SCREENING :NO FALLS REPORTED IN THE LAST YEAR CURRENT MEDICATIONS TAKING FLUOXETINE HCL 40 MG CAPSULE 2 CAPSULES ONCE A DAY ORALLY 90 DAYS TAKING SIMVASTATIN 20 MG TABLET 1 TABLET IN THE EVENING ORALLY ONCE A DAY TAKING ASPIR-81 81 MG TABLET DELAYED RELEASE 2 TABLET ORALLY ONCE A DAY TAKING MULTIVITAMINS TABLET 1 TABLET ORALLY ONCE A DAY TAKING COQ-10 100 MG CAPSULE 1 CAPSULE WITH A MEAL ORALLY ONCE A DAY TAKING MELATONIN 10 MG TABLET 2 AT BEDTIME NEEDED WITH FOOD ORALLY ONCE A DAY NEEDED TAKING COLACE 100 MG CAPSULE 2 ORALLY BID TAKING IBUPROFEN 600 MG TABLET 1 TABLET WITH FOOD OR MILK NEEDED ORALLY THREE TIMES A DAY TAKING MAY USE MEDICAL MARIJUANNA INHALE PRN TAKING LIDOCAINE 4 % LOTION DIRECTED EXTERNALLY APPLY TO RIGHT LOW BACK TID NOT-TAKING DRISDOL 31212 UNIT CAPSULE 1 CAPSULE ORALLY WEEKLY MEDICATION LIST REVIEWED AND RECONCILED WITH THE PATIENT PAST MEDICAL HISTORY HYPERLIPIDEMIA-LOW RISK NUCLEAR STRESS TEST AT AGE 40Y PER PATIENT-[place], [place] BETA-THALASSEMIA MINOR-12/2015 HGB ELECTROPHORESIS C A2 ELEVATED AT 5.2 TOBACCO ABUSE AYMPTOMATIC PYRURIA HX OF CHEST PAIN ARTHRITIS CHRONIC BACK AND NECK PAIN ANXIETY AND DEPRESSION TOENAIL FUNGUS SINUSITIS AND LEFT EAR INFECTION ALLERGIES PENICILLIN (FOR ALLERGIES USE ONLY): HIVES - ALLERGY SURGICAL HISTORY PREMATURE URETHRA REPAIR 1979 RIGHT SHOULDER REPAIR 1998 BROKEN JAW REPAIR 1998 BREAST IMPLANTS 2009 EYE SURGERY TO REMVE BAGS FROM UNDERNEATH 2010 ECT 2013 BILATERAL BUNIONECTOMY 1994 NECK FUSION SURGERY 01/2016 FAMILY HISTORY FATHER: , CAD, FIRST MN EARLY 50S, SUICIDE MOTHER: ALIVE, BREAST CANCER AT AGE EARLY 60'S, BOTH BREASTS AFFECTED, BEGINNING DEMENTIA, DIAGNOSED WITH CANCER, DIABETES, HYPERTENSION SIBLINGS: ALIVE, JOINT ISSUES,, HEART DISEASE DAUGHTER(S): ALIVE, GAVE UP TO ADOPTION MATERNAL GRAND MOTHER: BREAST CANCER, CANCER MATERNAL AUNT: , ONE MATERNAL AUNT WITH OVARIAN CANCER AT AGE 50, ONE MATERNAL AUNT WITH BREAST CANCER DX AT AGE 40 4 BROTHER(S) , 1 SISTER(S) - HEALTHY. 1DAUGHTER(S) - HEALTHY. BROTHER CAD WITH FIRST MN AT 45Y. SOCIAL HISTORY GENERAL: TOBACCO USE ARE YOU A:CURRENT SMOKER ARE YOU INTERESTED IN QUITTING?NOT READY TO QUIT COUNSELED THE PATIENT ON SMOKING EFFECTS, EDUCATION [id number]/30/2019 HOW MANY CIGARETTES A DAY DO YOU SMOKE?6-10 HOW SOON AFTER YOU WAKE UP DO YOU SMOKE YOUR FIRST CIGARETTE?WITHIN 5 MIN HOW OFTEN DO YOU SMOKE CIGARETTES?EVERY DAY PATIENT COUNSELED ON THE DANGERS OF TOBACCO USE AND URGED TO QUIT:06/10/2018 HIV / HEP-C SCREENING HIV TEST OFFERED TO PATIENT:YES DATE OFFERED:06/10/2018 TEST ACCEPTED:NO REASON:PATIENT DECLINED BROCHURE PROVIDED TO PATIENTNO OTHERS AT HOME: SPOUSE. EDUCATION LEVEL OF EDUCATION:GRADUATE DIET: REGULAR. LANGUAGE LANGUAGES SPOKEN:TRINIDADIAN NO DOMESTIC VIOLENCE DO YOU FEEL SAFE IN YOUR ENVIRONMENT?YES RECREATIONAL DRUG USE DRUG USE?YES MEDICAL MARIJUANA EXERCISE: 4-5 TIMES WEEKLY - CARDIO, WEIGHT LIFTING,RUNS. LEARNING BARRIERS / SPECIAL NEEDS CHANGE FROM LAST VISIT?NO BARRIERS TO LEARNING?NO HEARING IMPAIRED?NO VISION IMPAIRED?YES :CORRECTIVE LENSES COGNITIVELY IMPAIRED?NO READINESS TO LEARN?YES LEARNING PREFERENCES?NO LEARNING CAPABILITIES PRESENT?YES EMOTIONAL BARRIERS?NO SPECIAL DEVICES?NO MARGARINE CHURN OPERATOR NEEDED?NO LUNG CANCER SCREENING SMOKING STATUS:CURRENT SMOKER IS THE PATIENT BETWEEN THE AGE OF 55 AND 77?NO PAIN CLINIC PFS, CLERGY, PUBLIC HEALTH REFERRALS PFS REFERRAL NEEDED?NO CLERGY REFERRAL NEEDED?NO PUBLIC HEALTH REFERRAL NEEDED?NO WAS THE PROVIDER NOTIFIED OF ANY PERTINENT INFO?NO N/A HAS THE PATIENT BEEN EDUCATED REGARDING HIS/HER PLAN OF CARE?YES HAS THE PATIENT BEEN EDUCATED REGARDING PAIN, THE RISK FOR PAIN, THE IMPORTANCE OF EFFECTIVE PAIN MANAGEMENT, AND THE PAIN ASSESSMENT PROCESS?YES LATEX QUESTIONNAIRE LATEX ALLERGY : HAVE YOU EVER DEVELOPED ANY TYPE OF REACTION AFTER HANDLING LATEX PRODUCTS SUCH RUBBER GLOVES, CONDOMS, DIAPHRAGMS, BALLOONS, SOCKS, OR UNDERWEAR?NO LATEX ALLERGY : HAVE YOU EVER DEVELOPED ANY TYPE OF REACTION DURING OR AFTER DENTAL APPOINTMENT, VAGINAL/RECTAL EXAMINATION, SURGICAL PROCEDURE, OR ANY OTHER EXPOSURE?NO LATEX RISK : HAVE YOU EVER HAD ANY DIFFICULTY BREATHING OR HIVES AFTER EATING OR HANDLING ANY FRUITS, OR VEGETABLES; SUCH KIWI, BANANAS, STONE FRUITS, OR CHESTNUTSNO LATEX RISK : DO YOU HAVE A PREVIOUS PERSONAL HISTORY OF MORE THAN NINE SURGERIES, SPINA BIFIDA, OR REPEATED CATHERTIZATIONS? NO LATEX RISK : ARE YOU FREQUENTLY EXPOSED TO LATEX PRODUCTS IN YOUR OCCUPATION?NO DATE ASKED : 06/10/2018 CAFFEINE CAFFEINE USE?YES HOW OFTEN AND HOW MUCH? 4 CUPS DAILY ADVANCE DIRECTIVE ADVANCE DIRECTIVE DISCUSSED WITH PATIENT:YES PATIENT GIVEN INFORMATION ON HCP, DECLINED ASSISTANCE FILLING IT OUT. STATED SHE WANTED TO TAKE IT HOME AND LOOK IT OVER. CONFUCIANISM [id number] RESTORATIONIST MARITAL STATUS: . ALCOHOL SCREENING DID YOU HAVE A DRINK CONTAINING ALCOHOL IN THE PAST YEAR?YES HOW OFTEN DID YOU HAVE A DRINK CONTAINING ALCOHOL IN THE PAST YEAR?MONTHLY OR LESS (1 POINT) HOW MANY DRINKS DID YOU HAVE ON A TYPICAL DAY WHEN YOU WERE DRINKING IN THE PAST YEAR?1 OR 2 (0 POINTS) HOW OFTEN DID YOU HAVE SIX OR MORE DRINKS ON ONE OCCASION IN THE PAST YEAR?NEVER (0 POINTS) POINTS1 INTERPRETATIONNEGATIVE OCCUPATION: [employer] ASSOC[employer]ING. SEXUAL HX HAD SEX IN THE LAST 12 MONTHS (VAGINAL, ORAL, OR ANAL)?YES WITHMEN ONLY USE PROTECTION?NO HAVE YOU EVER HAD AN STD?YES HERPES?YES LMP:05/31/18 CHLAMYDIA?NO GC?NO SYPHILIS?NO 08/06/17 1125 REVIEWED WITH PT.10/28/17 1045 REVIEWED WITH PT LAS REVIEWED WITH PATIENT 06/10/18 1441 JS. HOSPITALIZATION/MAJOR DIAGNOSTIC PROCEDURE SURGERY RELATED REVIEW OF SYSTEMS REVIEWED BY: PROVIDER: EFRAIN JORDAN . CONSTITUTIONAL: ANY CHANGE IN YOUR MEDICAL CONDITION? NO . CHILLS NO . FEVER NO . INFECTION: DO YOU HAVE NEW INFECTIONS? NO . DO YOU HAVE HISTORY OF MRSA? NO . MUSCULOSKELETAL: ANY NEW PATTERNS OF PAIN OR NUMBNESS? NO . GASTROENTEROLOGY: ANY NEW CHANGE IN BOWEL CONTROL? NO . GENITOURINARY: ANY NEW CHANGE IN BLADDER CONTROL? NO . IS THERE A CHANCE YOU COULD BE ? NO . HEMATOLOGY/LYMPH: DO YOU TAKE ANY BLOOD THINNERS? (FOR EXAMPLE- COUMADIN, PLAVIX, AGGRENOX, PLATEL, PRADAXA, OR XARELTO) NO . WHEN WAS YOUR LAST DOSE? DATE: TIME: . NEUROLOGY: HAVE YOU FALLEN IN THE PAST 12 MONTHS? NO . ANY NEW EXTREMITY NUMBNESS OR WEAKNESS? NO . CARDIOLOGY: DO YOU HAVE A PACEMAKER OR DEFIBRILLATOR? NO . RESPIRATORY: HAVE YOU BEEN SICK IN THE PAST WEEK? NO . FEVER NO . FLU LIKE SYMPTOMS? NO . COUGH NO . INTEGUMENTARY: DO YOU HAVE ANY RASHES OR OPEN SORES? NO . ALLERGIC/IMMUNO: ARE YOU ALLERGIC TO IV DYE? NO . ANY NEW ALLERGIES? NO . PSYCHIATRIC: DO YOU HAVE THOUGHTS OF HURTING YOURSELF OR SOMEONE ELSE? NO . ARE YOU ABUSED, NEGLECTED, OR IN AN UNSAFE ENVIRONMENT? NO . ENDOCRINOLOGY: ARE YOU DIABETIC? NO . OTHER: DO YOU NEED ANY PRESCRIPTIONS? NO . IF YES, PLEASE LIST: ____ . ANY NEW PROBLEMS WITH YOUR MEDICATIONS? NO . WHEN DID YOU LAST EAT? ____ . WHEN DID YOU LAST DRINK? ____ . WHAT DID YOU LAST DRINK? ____ . NAME OF PERSON DRIVING YOU HOME? ____ . DO YOU HAVE ANY OTHER QUESTIONS OR CONCERNS YES, PT CUT LEFT THUMB ON DOG FOOD CAN, WAS SEEN AND TX' @ [facility] ER GIVEN TETANUS SHOT 3 WEEKS AGO . VITAL SIGNS WT 133.4 LBS, HT 64 IN, BMI 22.90 INDEX, BP 123/66 MM HG, HR 80 /MIN, RR 18 /MIN, TEMP 98.1 F, OXYGEN SAT % 99%, NA INITIALS AW 1008. EXAMINATION GENERAL EXAMINATION: GENERAL APPEARANCE:ALERT ,WEEPY . PSYCHAFFECT FLAT,CONSTRICTED . LUNGS:LUNG GARCIA ARE CLEAR TO AUSCULTATION BILATERALLY. GOOD MOVEMENT OF AIR . HEART:S1, S2 IN A REGULAR RATE AND RHYTHM. NO SIGNIFICANT MURMURS, RUBS OR GALLOPS NOTED . ASSESSMENTS CERVICAL POST-LAMINECTOMY SYNDROME - M96.1 (PRIMARY) MYOFASCIAL PAIN - M79.1 TREATMENT CERVICAL POST-LAMINECTOMY SYNDROME NOTES: CONTINUE CONSERVATIVE CARE. PROCEDURE CODES FA211 ESTABILISHED PATIENT [facility] CHARGE DISPOSITION & COMMUNICATION FOLLOW UP PT WILL CALL ELECTRONICALLY SIGNED BY JULIAN ONEILL ON 08/09/2018 AT 07:58 AM EDT DISCLAIMER : THIS IS A VISIT SUMMARY EXTRACTED FROM THE SampleBoard CHART. IT IS NOT A COPY OF THE SampleBoard PROGRESS NOTE. SHELDON
== END ==
LOC: M PAIN 09:45
PROVIDERS: ATTEND Nurse Practitioner Family
DX: M96.1 Postlaminectomy syndrome, not elsewhere classified (principal); M79.18 Myalgia, other site; E78.5 Hyperlipidemia, unspecified; M19.90 Unspecified osteoarthritis, unspecified site; Z86.59 Personal history of other mental and behavioral disorders; Z98.890 Other specified postprocedural states; F17.210 Nicotine dependence, cigarettes, uncomplicated; Z88.0 Allergy status to penicillin; Z79.82 Long term (current) use of aspirin; Z79.899 Other long term (current) drug therapy

== ENCOUNTER → 2018-11-30 | Outpatient (REF) | payer OTHER ==
[2018-11-30 12:32] LABS: BLOOD UREA NITROGEN 13 MG/DL (7-18); CREATININE FOR GFR 0.93 MG/DL (0.55-1.30); GLOMERULAR FILTRATION RATE > 60.0 (>58)
== END ==
LOC: M LABDRAW1 11:45
PROVIDERS: ATTEND Physician Assistant
DX: M47.817 Spondylosis without myelopathy or radiculopathy, lumbosacral region (principal)

== ENCOUNTER → 2018-12-17 | Outpatient (CLI) | payer OTHER ==
[~2018-12-17] MED LIST changes: +PROHANCE 279.3MG/ML 15ML VIAL (A9576) As Ordered ONE
--- NOTE | 2018-12-17 18:00 | REP ---
Bilateral breast MRI study without and with IV gadolinium: History: Positive family history breast carcinoma. Dense breast tissue on mammography. High-risk screening study. Comparison mammography June 10, 2018. Technique: 3 Kelly MRI imaging was performed with a dedicated breast coil. Axial, coronal, and sagittal T1 and T2-weighted scans were obtained with and without fat saturation in the usual fashion. The study includes dynamically acquired post gadolinium enhanced imaging subtraction imaging. Maximal intensity projection and multiplanar re-formation imaging is included as well. The study was interpreted with the aid of YobongoD, an FDA approved computer-aided detection (CAD) software program, on a dedicated breast MRI work station. The gadolinium enhancement dose is 11 ml of intravenous ProHance. Findings: Bilaterally intact retroperitoneal silicone breast augmentation implants are observed. There is no evidence of intracapsular or extracapsular implant disruption. No axillary lymphadenopathy or significant breast cystic change is seen. There is a symmetrical pattern of fibroglandular tissue bilaterally corresponding with the mammographic pattern. No suspicious morphologic abnormality is noted in either breast on high-resolution pre and postcontrast T1 and T2-weighted scans. There is no suspicious area of enhancement and washout in either breast on dynamically acquired post contrast images. Subtraction images are unremarkable. Impression: BIRADS category II benign findings. Repeat bilateral screening breast MRI study recommended 1 year. Electronically Signed by Arnulfo Do MD 12/17/2018 07:50 P
== END ==
LOC: M RAD 12:34
PROVIDERS: ATTEND Nurse Practitioner Women's Health
DX: Z12.31 Encounter for screening mammogram for malignant neoplasm of breast (principal); Z80.3 Family history of malignant neoplasm of breast

== ENCOUNTER → 2019-03-22 | Outpatient (CLI) | payer BC ==
[~2019-03-22] MED LIST changes: -PROHANCE 279.3MG/ML 15ML VIAL (A9576) As Ordered ONE; -SIMV20TA2 PO; +SIMV20TA22 PO
[2019-03-22 06:56] LABS: BASO # 0.1 10^3/uL (0.0-0.2); EOS # 0.8 10^3/uL (0.0-0.5); EOS % 8.6 % (0.0-3.0); HEMATOCRIT 34.4 % (36.0-47.0); HEMOGLOBIN 10.8 g/dl (12.0-15.5); LYMPH # 2.8 10^3/uL (1.5-5.0); LYMPH % 30.4 % (24.0-44.0); MEAN CORPUSCULAR HEMOGLOBIN 21.9 pg (27.0-33.0); MEAN CORPUSCULAR HGB CONC 31.4 g/dl (32.0-36.5); MEAN CORPUSCULAR VOLUME 69.6 fl (80.0-96.0); MONO # 0.7 10^3/uL (0.0-0.8); MONO % 7.4 % (0.0-5.0); NEUTROPHILS # 4.8 10^3/uL (1.5-8.5); NEUTROPHILS % 52.4 % (36.0-66.0); PLATELET COUNT, AUTOMATED 307 10^3/uL (150-450); RED BLOOD COUNT 4.94 10^6/uL (4.00-5.40); WHITE BLOOD COUNT 9.1 10^3/uL (4.0-10.0)
[2019-03-22 07:33] LABS: ALBUMIN 3.4 GM/DL (3.2-5.2); ALT/SGPT 32 U/L (12-78); BILIRUBIN,TOTAL 0.3 MG/DL (0.2-1.0); BLOOD UREA NITROGEN 17 MG/DL (7-18); CALCIUM LEVEL 8.4 MG/DL (8.5-10.1); CARBON DIOXIDE LEVEL 27 MEQ/L (21-32); CHLORIDE LEVEL 112 MEQ/L (98-107); CHOLESTEROL LEVEL 188 MG/DL (<200); CREATININE FOR GFR 0.84 MG/DL (0.55-1.30); FREE T4 0.81 NG/DL (0.76-1.46); GLOMERULAR FILTRATION RATE > 60.0 (>58); GLUCOSE, FASTING 90 MG/DL (70-100); HDL CHOLESTEROL 87 MG/DL (>40); LDL CHOLESTEROL 89 MG/DL (<100); NON-HDL-C 101 MG/DL; POTASSIUM SERUM 4.3 MEQ/L (3.5-5.1); SODIUM LEVEL 143 MEQ/L (136-145); TOTAL PROTEIN 6.5 GM/DL (6.4-8.2); TRIGLYCERIDES LEVEL 62 MG/DL (<150)
[2019-03-22 09:18] LABS: TOTAL 25(OH) VITAMIN D 32.4 NG/ML (30.0-100.0)
== END ==
LOC: M LAB 06:34
PROVIDERS: ATTEND Physician Assistant
DX: E78.2 Mixed hyperlipidemia (principal)

== ENCOUNTER → 2019-05-11 | Outpatient (CLI) | payer BC ==
[2019-05-11 07:12] LABS: PLATELET COUNT, AUTOMATED 340 10^3/uL (150-450)
[2019-05-11 07:23] LABS: INR 0.94; PROTHROMBIN TIME 12.2 SECONDS (11.8-14.0)
[2019-05-11 07:24] LABS: PARTIAL THROMBOPLASTIN TIME 30.3 SECONDS (25.0-38.4)
[2019-05-11 08:09] LABS: HCG, SERUM QUALITATIVE NEGATIVE (NEGATIVE)
== END ==
LOC: M LAB 06:45
PROVIDERS: ATTEND Physician Assistant
DX: Z01.812 Encounter for preprocedural laboratory examination (principal)

== ENCOUNTER → 2019-10-24 | Outpatient (REF) | payer BC ==
[~2019-10-24] MED LIST changes: -ASPI81TA85 PO; +ASPI81TA86 PO; -MOVA1TAB2 PO; +NALO25TA PO
[2019-10-24 17:31] LABS: BASO # 0.1 10^3/uL (0.0-0.2); BASO % 1.2 % (0.0-1.0); EOS # 0.3 10^3/uL (0.0-0.5); EOS % 4.7 % (0.0-3.0); HEMATOCRIT 37.4 % (36.0-47.0); HEMOGLOBIN 11.4 g/dl (12.0-15.5); LYMPH # 2.6 10^3/uL (1.5-5.0); LYMPH % 39.1 % (24.0-44.0); MEAN CORPUSCULAR HEMOGLOBIN 21.1 pg (27.0-33.0); MEAN CORPUSCULAR HGB CONC 30.5 g/dl (32.0-36.5); MEAN CORPUSCULAR VOLUME 69.1 fl (80.0-96.0); MONO # 0.6 10^3/uL (0.0-0.8); MONO % 8.3 % (0.0-5.0); NEUTROPHILS # 3.1 10^3/uL (1.5-8.5); NEUTROPHILS % 46.4 % (36.0-66.0); PLATELET COUNT, AUTOMATED 315 10^3/uL (150-450); RED BLOOD COUNT 5.41 10^6/uL (4.00-5.40); WHITE BLOOD COUNT 6.8 10^3/uL (4.0-10.0)
[2019-10-24 18:04] LABS: ALBUMIN 3.4 GM/DL (3.2-5.2); ALT/SGPT 22 U/L (12-78); BILIRUBIN,TOTAL 0.4 MG/DL (0.2-1.0); BLOOD UREA NITROGEN 22 MG/DL (7-18); CALCIUM LEVEL 8.9 MG/DL (8.5-10.1); CARBON DIOXIDE LEVEL 29 MEQ/L (21-32); CHLORIDE LEVEL 109 MEQ/L (98-107); GLOMERULAR FILTRATION RATE > 60.0 (>58); GLUCOSE, FASTING 82 MG/DL (70-100); MAGNESIUM LEVEL 2.2 MG/DL (1.8-2.4); POTASSIUM SERUM 5.1 MEQ/L (3.5-5.1); SODIUM LEVEL 141 MEQ/L (136-145); TOTAL PROTEIN 6.9 GM/DL (6.4-8.2)
== END ==
LOC: M LAB REF 12:00
PROVIDERS: ATTEND Nurse Practitioner Family
DX: R25.1 Tremor, unspecified (principal)

== ENCOUNTER → 2019-10-25 | Outpatient (CLI) | payer BC ==
[2019-10-25 09:56] LABS: CHOLESTEROL RISK RATIO 2.756 (<5)
== END ==
LOC: M LAB 06:26
PROVIDERS: ATTEND Family Medicine
DX: E78.2 Mixed hyperlipidemia (principal)

== ENCOUNTER → 2019-10-25 | Outpatient (CLI) | payer BC ==
[2019-10-25 07:27] LABS: PLATELET COUNT, AUTOMATED 342 10^3/uL (150-450)
[2019-10-25 08:00] LABS: COLLAGEN EPINEPHRINE 244 SECONDS (74-162)
[2019-10-25 08:12] LABS: INR 0.91; PROTHROMBIN TIME 12.4 SECONDS (11.8-14.0)
[2019-10-25 08:13] LABS: PARTIAL THROMBOPLASTIN TIME 29.6 SECONDS (25.0-38.4)
[2019-10-25 08:21] LABS: COLLAGEN ADP 96 SECONDS (56-103)
[2019-10-25 08:22] LABS: HCG, SERUM QUALITATIVE NEGATIVE (NEGATIVE)
== END ==
LOC: M LAB 06:30
PROVIDERS: ATTEND Physician Assistant
DX: M47.817 Spondylosis without myelopathy or radiculopathy, lumbosacral region (principal)

== ENCOUNTER → 2019-10-26 | Outpatient (CLI) | payer BC | LOC: M LABSMTC 11:47 | PROVIDERS: ATTEND Physical Medicine & Rehabilitation | DX: Z20.828 Contact with and (suspected) exposure to other viral communicable diseases (principal) | CPT/HCPCS: C9803; U0003 ==

== ENCOUNTER → 2019-10-31 | Outpatient (CLI) | payer BC ==
[2019-10-31 06:53] LABS: COLLAGEN EPINEPHRINE 177 SECONDS (74-162)
[2019-10-31 07:13] LABS: COLLAGEN ADP 82 SECONDS (56-103)
== END ==
LOC: M LAB 06:19
PROVIDERS: ATTEND Physical Medicine & Rehabilitation
DX: Z01.812 Encounter for preprocedural laboratory examination (principal)

== ENCOUNTER → 2019-11-23 | Outpatient (CLI) | payer BC ==
--- NOTE | 2019-11-23 16:21 | REPMRS ---
Patient History The patient states she has not had a clinical breast exam in over a year. Family history of breast cancer under age 50 in mother, breast cancer at age 50 or over in maternal aunt, breast cancer at age 50 or over in maternal aunt, breast cancer at age 50 or over in maternal grandmother. Implants in both breasts, 2009. 3D TOMOSYNTHESIS WAS PERFORMED. ASHLEY Rosa Digital Woman Screen Mammo: November 23, 2019 - Exam #: [id number] Bilateral CC and MLO view(s) were taken. Technologist: Swapna Nunez, Technologist Prior study comparison: June 10, 2018, bilateral digital woman screen mammo performed at [facility]. May 12, 2017, digital woman screen mammo performed at [facility]. FINDINGS: The breast tissue is heterogeneously dense. This may lower the sensitivity of mammography. There has been no change in the appearance of the mammogram from the prior studies. There is a moderate amount of residual fibroglandular tissue which is fairly symmetric. There is no interval development of dominant mass, areas of architectural distortion, or clustered microcalcification typical of malignancy. Assessment: BI-RADS/ACR category 1 mammogram. Negative Mammogram. Recommendation Routine screening mammogram in 1 year (for women over age 40). This mammogram was interpreted with the aid of an FDA-approved computer-aided dectection system. THE LIFETIME RISK OF BREAST CANCER IS 32.8%, THEREFORE SUPPLEMENTAL SCREENING MRI OF THE BREASTS IS RECOMMENDED IN 6 MONTHS. Electronically Signed By: Salvatore Mcdaniel MD 11/23/19 [id number]
== END ==
LOC: M WHC 15:28
PROVIDERS: ATTEND Family Medicine
DX: Z12.31 Encounter for screening mammogram for malignant neoplasm of breast (principal); Z80.3 Family history of malignant neoplasm of breast; Z98.82 Breast implant status

== ENCOUNTER → 2019-12-07 | Outpatient (CLI) | payer BC | LOC: M LABSMTC 11:58 | PROVIDERS: ATTEND Physical Medicine & Rehabilitation | DX: Z01.812 Encounter for preprocedural laboratory examination (principal); Z20.828 Contact with and (suspected) exposure to other viral communicable diseases ==

== ENCOUNTER → 2019-12-12 | Outpatient (CLI) | payer BC ==
[2019-12-12 07:06] LABS: HCG, SERUM QUALITATIVE NEGATIVE (NEGATIVE)
[2019-12-12 07:10] LABS: COLLAGEN EPINEPHRINE 120 SECONDS (74-162)
== END ==
LOC: M LAB 06:05
PROVIDERS: ATTEND Physical Medicine & Rehabilitation
DX: Z01.812 Encounter for preprocedural laboratory examination (principal)

== ENCOUNTER 2020-01-27 09:51 | Emergency (ER) | payer BC ==
[~2020-01-27] VITALS: Ht 162.6 cm; Wt 64.8 kg
[2020-01-27] MEDS ORDERED: MELO15TA28 (10:12)
--- NOTE | 2020-01-27 11:18 | REP ---
INDICATION: nocturnal pain COMPARISON: MRI dated 02/17/2019 TECHNIQUE: AP, lateral, bilateral oblique, and coned-down views of the lumbar spine. FINDINGS: Focal endplate sclerosis, disc space narrowing and osteophytosis at the L2-3 level. Remainder of the examination appears essentially age-appropriate. No acute fracture/compression injury or subluxation. IMPRESSION: Focal advanced degenerative changes at the L2-3 level. <Electronically signed by Krishan Gibson > 01/27/20 1115
[2020-01-27 11:33] LABS: BASO # 0.1 10^3/uL (0.0-0.2); BASO % 1.1 % (0.0-1.0); EOS # 0.2 10^3/uL (0.0-0.5); EOS % 2.1 % (0.0-3.0); HEMATOCRIT 39.4 % (36.0-47.0); LYMPH # 2.5 10^3/uL (1.5-5.0); LYMPH % 29.3 % (24.0-44.0); MEAN CORPUSCULAR HEMOGLOBIN 20.7 pg (27.0-33.0); MEAN CORPUSCULAR HGB CONC 30.5 g/dl (32.0-36.5); MEAN CORPUSCULAR VOLUME 67.8 fl (80.0-96.0); MONO # 0.6 10^3/uL (0.0-0.8); MONO % 6.7 % (0.0-5.0); NEUTROPHILS # 5.1 10^3/uL (1.5-8.5); NEUTROPHILS % 60.4 % (36.0-66.0); PLATELET COUNT, AUTOMATED 358 10^3/uL (150-450); RED BLOOD COUNT 5.81 10^6/uL (4.00-5.40); WHITE BLOOD COUNT 8.5 10^3/uL (4.0-10.0)
[2020-01-27 11:53] LABS: BLOOD UREA NITROGEN 17 MG/DL (7-18); CALCIUM LEVEL 9.2 MG/DL (8.5-10.1); CARBON DIOXIDE LEVEL 26 MEQ/L (21-32); CHLORIDE LEVEL 107 MEQ/L (98-107); CREATININE FOR GFR 0.82 MG/DL (0.55-1.30); GLOMERULAR FILTRATION RATE > 60.0 (>58); GLUCOSE, FASTING 83 MG/DL (70-100); POTASSIUM SERUM 4.2 MEQ/L (3.5-5.1); SODIUM LEVEL 138 MEQ/L (136-145)
[2020-01-27 12:12] LABS: ERYTHROCYTE SEDIMENTATION RATE 6 mm/hr (0-20)
[2020-01-27 12:51] VITALS: BP 133/81
[2020-01-27] MEDS ORDERED: PROHANCE 279.3MG/ML 15ML VIAL As Ordered ONE (13:46)
--- NOTE | 2020-01-27 15:00 | REPVR ---
PROCEDURE INFORMATION: Exam: MR Lumbar Spine Without and With Contrast. Exam date and time: 01/27/2020 1:56 PM Age: 49 years old Clinical indication: Low back pain; Additional info: Nocturnal pain ; sp injection TECHNIQUE: Imaging protocol: Multiplanar magnetic resonance images of the lumbar spine without and with intravenous contrast. Contrast material: PROHANCE; Contrast volume: 12 ml; Contrast route: INTRAVENOUS (IV); COMPARISON: MRI-Spine, L.S. without con 06/23/2018 7:41 AM FINDINGS: Vertebrae: Unremarkable. Spinal cord: Conus terminates at L1 and appears normal in signal intensity without intrinsic or extrinsic lesion. L1-L2: There is mild disc bulge. There is mild facet degeneration. There is no significant spinal stenosis. There is no significant neural foraminal narrowing. L2-L3: There is abnormal signal and enhancement within the disc space and endplates with evidence of endplate erosion of inferior endplate of L2 and superior endplate of L3. Findings are consistent with discitis / osteomyelitis. There is paravertebral anterolateral enhancing soft tissue consistent with phlegmon. There is no evidence of drainable abscess. There is moderate disc bulge. There is thickening of ligamentum flavum and facet degeneration. There is no significant spinal stenosis. There is extension of disc bulging into neural foramen with mild bilateral neural foraminal narrowing. There is left perineural cyst. L3-L4: There is mild disc bulge. There is thickening of ligamentum flavum and facet degeneration. There is no significant spinal stenosis. There is mild medial bilateral neural foraminal narrowing. L4-L5: There is mild disc bulge. There is thickening of ligamentum flavum and facet degeneration. There is no significant spinal stenosis. There is no significant neural foraminal narrowing. L5-S1: There is disc desiccation at L3-L4 and L5-S1. There is mild disc bulge. There is facet degeneration. There is no significant spinal stenosis. There is no significant neural foraminal narrowing. Soft tissues: Unremarkable. IMPRESSION: Findings consistent with discitis and osteomyelitis with paravertebral phlegmon at L2-L3. No drainable soft tissue abscess. Electronically signed by: Laura Koo On 01/27/2020 15:00:08 PM
[2020-01-27] MEDS ORDERED: NS 1,000 ML IV ONE (16:00)
== END 2020-01-27 16:44 | disposition short-term general hospital (02) ==
LOC: M ED 09:51
DX: M46.46 Discitis, unspecified, lumbar region (principal); M86.9 Osteomyelitis, unspecified; F32.9 Major depressive disorder, single episode, unspecified; F41.9 Anxiety disorder, unspecified; E78.5 Hyperlipidemia, unspecified; F17.200 Nicotine dependence, unspecified, uncomplicated; Z88.0 Allergy status to penicillin; Z79.82 Long term (current) use of aspirin; Z79.899 Other long term (current) drug therapy
CPT/HCPCS: 36415; 72110; 72158; 80048; 85025; 85652; 86140; 99284; A9576